=== PATIENT | female | born 1995 | race Caucasian/White ===

== ENCOUNTER 2022-07-29 16:48 | Emergency (ER) | payer OTHER, SELFPAY ==
--- NOTE | ~2022-07-29 | CT_ITS ---
EXAMINATION: CT abdomen pelvis w con DATE: 07/29/2022 18:39 INDICATION: Epigastric and right upper quadrant abdominal pain. Nausea and vomiting. Elevated lipase. TECHNIQUE: Computed tomography (CT) of the abdomen and pelvis was performed with 100 mL Omnipaque 350 intravenous contrast. Automated exposure control and iterative reconstruction technique were employe d. The dose-length product was 678.95 mGy-cm. COMPARISON: None. FINDINGS: The visualized portions of the lung bases demonstrate minimal atelectasis. No pleural effus ion. The heart size is normal. No pericardial effusion. The liver is normal. The gallbladder is pb l in size. The spleen, pancreas, and adrenal glands are normal. There are cysts in the kidneys measur ing up to 6 mm on the left. There is an intrauterine device in expected position. There are changes o f gastric sleeve procedure. There are no dilated loops of bowel. The appendix is normal. There are no pathologically enlarged lymph nodes. There is no free intraperitoneal fluid. There is a 2.9 cm domin ant follicle in left ovary. There is mild thoracic spondylosis. IMPRESSION: 1. Normal pancreas. Reviewed, dictated and finalized at location A. IMPRESSION: 1. Normal pancreas.
[2022-07-29 17:06] VITALS: BP 108/67; PULSE 84; RESP 18; TEMP 37.1; O2SAT 100
[2022-07-29 17:22] LABS: Basophils Percent Auto 0.4 % (0.2-1.2); Eosinophils Absolute Auto 0.1 K/mm3 (0-0.3); Eosinophils Percent Auto 1.5 % (0-4.4); Hematocrit 38.4 % (37.0-47.0); Hemoglobin 12.2 g/dL (12.0-15.0); Immature Granulocyte Absolute 0.02 K/mm3 (0.00-0.031); Immature Granulocyte Percent A 0.3 % (0-0.5); Lymphocytes Absolute Auto 1.89 K/mm3 (0.9-3.2); Lymphocytes Percent Auto 25.2 % (18.3-44.2); Mean Corpuscular HGB Conc 31.8 g/dl (32-36); Mean Corpuscular Hemoglobin 27.9 pg (26-34); Mean Corpuscular Volume 87.7 fl (80-100); Mean Platelet Volume 10.2 fl (7.4-10.4); Monocytes Absolute Auto 0.5 K/mm3 (0.1-0.6); Monocytes Percent Auto 7.1 % (2.6-8.5); Neutrophils Absolute Auto 4.9 K/mm3 (1.3-6.7); Neutrophils Percent Auto 65.5 % (45.5-73.1); Platelet Count Result 312 k/mm3 (150-375); Red Blood Count 4.38 M/mm3 (4.2-5.4); Red Cell Distribution Width 14.3 % (11.5-14.5); White Blood Count 7.5 K/mm3 (4.5-10.0)
[2022-07-29 17:37] LABS: Alanine Aminotransferase 44 U/L (6-35); Albumin Level 4.3 g/dL (3.5-5.1); Alkaline Phosphatase 69 U/L (38-126); Anion Gap 9 mmol/L (8-16); Aspartate Amino Transferase 67 U/L (14-36); Bilirubin,Total 0.5 mg/dL (0.2-1.3); Blood Urea Nitrogen 9 mg/dL (7-17); Calcium 8.8 mg/dL (8.4-10.2); Carbon Dioxide 24 mmol/L (22-30); Chloride 106 mmol/L (98-107); Estimated CRCL calculation 125 ml/min; Estimated Glomerular Filt Rate > 60; Glucose 111 mg/dL (65-110); Lipase 1342 U/L (23-300); Potassium 3.5 mmol/L (3.4-5.0); Sodium 139 mmol/L (137-145)
[2022-07-29] MEDS: ONDANSETRON HCL ODT 4 MG TABLET PO (17:59)
[2022-07-29] MEDS: SODIUM CHLORIDE 0.9% IV 1,000 ML 999 ML IV CONT ×2 (17:59→19:40)
[2022-07-29] MEDS: PANTOPRAZOLE SODIUM IV 40 MG VIAL IV PUSH (17:59)
[2022-07-29] MEDS: MORPHINE SULFATE (*CRX) 4 MG/ML INJ IV PUSH (17:59)
--- NOTE | 2022-07-29 18:02 | ED.ABDPAIN ---
HPI - Abdominal Pain General Chief Complaint: Abdominal Pain Stated Complaint: abdominal pain Time Seen by Provider: 07/29/22 17:11 Source: patient Mode of arrival: ambulatory Limitations: no limitations History of Present Illness HPI narrative: Patient is a 27-year-old female who presents ED with report of epigastric abdominal pain. 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 She thought it may be related to acid reflux. She notes a history of gastric sleeve surgery and has frequent issues with acid reflux. Surgery was performed last October [address] Ferrer with [facility]. She tried taking and omeprazole and Tums, but denied relief. Pain began to radiate across into her right upper quadrant as well. She also reported having nausea and vomiting, unable to keep down any food or drink, which prompted her presentation. She reports pain did improve slightly after vomiting. She did not take anything else for pain. Denies any recent fevers, diarrhea, constipation, rectal bleeding, melena, urinary symptoms. Patient has a history of gallstones, diagnosed last January. Related Data Allergies Allergy/AdvReac Type Severity Reaction Status Date / Time No Known Allergies Allergy Verified 07/29/22 17:12 Review of Systems Review of Systems: CONSTITUTIONAL: Denies fever, chills, or sweats. CARDIOVASCULAR: Denies chest pain. RESPIRATORY: Denies dyspnea. GASTROINTESTINAL: See HPI. GENITOURINARY: Denies dysuria or hematuria. All systems reviewed & are unremarkable except as noted in HPI and below PMFSH Past Medical History Medical History Gallstones GERD (gastroesophageal reflux disease) Surgical History Surgical History (Updated 07/29/22 @ 19:07 by Ita Wynn PA-C) History of gastric surgery Social History Social History (Updated 07/29/22 @ 19:07 by Ita Wynn PA-C) Smoking status: Never smoker Exam Narrative: GENERAL: Well appearing, well-nourished, non-toxic, in no acute distress. HEAD: Normocephalic, atraumatic. NECK: Supple. No adenopathy, no masses. RESPIRATORY: Airway patent, respirations nonlabored. Clear to auscultation bilaterally, no rales, rhonchi, wheezing. CARDIOVASCULAR: Regular rate and rhythm without murmurs, rubs, or gallops. Radial pulses 2+ and equal bilaterally. ABDOMINAL: Soft, moderate tenderness in epigastric and right upper quadrant, nondistended, no hepatosplenomegaly. Normoactive BS. MUSCULOSKELETAL: Moves all extremities. Strength/ROM intact without gross deformities. SKIN: Warm, dry, normal color. No rashes. NEURO: A&O X3. Speech clear. Cranial nerves II-XII grossly intact. Steady gait. No ataxic movements. PSYCHIATRIC: Appropriate mood and affect. Normal interaction. Course Vital Signs Vital signs: Vital Signs Temperature 98.8 F 07/29/22 17:06 Pulse Rate 84 07/29/22 17:06 Respiratory Rate 18 07/29/22 17:06 Blood Pressure 108/67 07/29/22 17:06 Pulse Oximetry 100 07/29/22 17:06 Oxygen Delivery Room Air 07/29/22 17:06 Temperature 98.8 F 07/29/22 17:06 Pulse Rate 77 07/29/22 22:03 Respiratory Rate 15 07/29/22 22:03 Blood Pressure 126/90 07/29/22 22:03 Pulse Oximetry 100 07/29/22 22:03 Oxygen Delivery Room Air 07/29/22 17:06 MDM - Abdominal Pain MDM Narrative Medical decision making narrative: Patient presented to ED with epigastric and right upper quadrant pain that began just prior to arrival after eating Ijim-cy-rrm-Box. Vitals stable upon arrival. Afebrile. Patient with moderate epigastric tenderness on exam. CBC without leukocytosis or anemia. CMP showing mild transaminitis, no records to compare to. Lipase elevated at ~1300. Urine with trace ketones, trace leuk esterase, no other signs of infection. CT abdomen pelvis performed and essentially unremarkable, no
[2022-07-29 18:14] LABS: Appearance Urine Cloudy (Clear); Bacteria Urine None Seen /hpf; Bilirubin Urine 1+ (Negative); Blood Urine Trace (Negative); Color Urine Dark Yellow (Yellow); Glucose Urine UA Negative (Negative); Ketones Urine Trace mg/dL (Negative); Leukocyte Esterase Ur Trace LEU/UL (Negative); Nitrate Urine Negative (Negative); Non Pathogenic Casts 0-2; Protein Urine Negative (Negative); RBC Urine 0-2 /hpf (0-2); Specific Grav Ur 1.023 (1.001-1.035); Squamous Epithelial Cell Urine Occasional /hpf (Few); WBC Urine 0-5 /hpf; pH Urine 5.5 (5.0-9.0)
[2022-07-29 18:16] LABS: Add Urine Microscopic? YES
[2022-07-29 19:24] VITALS: BP 124/79; PULSE 87; RESP 16; O2SAT 100
[2022-07-29 21:04] VITALS: BP 111/71; PULSE 83; RESP 16; O2SAT 99
--- NOTE | 2022-07-29 21:30 | PC.NURSE ---
Pt provided with water and apple juice for oral tolerance test. Pt tolerated both well and has no c/o of nausea or pain.
[2022-07-29 22:03] VITALS: BP 126/90; PULSE 77; RESP 15; O2SAT 100
== END 2022-07-29 22:10 | disposition home or self-care (01) ==
PROVIDERS: Emergency Provider Physician Assistant
DX: K85.90 Acute pancreatitis without necrosis or infection, unspecified (principal); R74.01 Elevation of levels of liver transaminase levels; K21.9 Gastro-esophageal reflux disease without esophagitis; Z98.84 Bariatric surgery status
CPT/HCPCS: 36415; 74177; 80053; 81001; 81025; 83690; 85025; 96361; 96374; 96375; 99284; A9270; C9113; J2270; J7030; Q9967

== ENCOUNTER 2024-07-05 07:58 | Emergency (ER) | payer OTHER, SELFPAY ==
--- NOTE | ~2024-07-05 | XR_ITS ---
XR chest 1V portable Ordering provider: Fausto Lopez MD History: 29 years Female with . R pleuritic pain . Comparison: None. FINDINGS: MEDIASTINUM: The cardiac silhouette is not enlarged. LUNGS: No infiltrates, effusions or pneumothorax. OTHER: No free air under the diaphragm. IMPRESSION: No acute cardiopulmonary pathology. Reviewed, dictated and finalized at location A.
--- OUTSIDE RECORDS SUMMARY | 2024-07-05 08:00 | XMS_ITS | Encounter Summary ---
Author Organization [facility] Address [address] [place] [address] Care Team Providers Care Biofuels Engineering Manager Name Role Phone Unavailable Primary Care Provider Unavailabl e Reason for Visit * Reason Onset Date Comments Other 11/25/2015 Encounter Details Date Type Department Care Team (Late st Contact Info) Description 11/25/2015 Telephone [facility] Program [address] [facility] [place] [address] Frida Santiago MD [address] [facility]. [facility] [address] [place] [address] Other Social History Tobacco Use Types Packs/Day Years Used Date Smoking Tobacco: Every Day Cigarettes Smokeless Tobacco: Never Alcohol Use Standard Drinks/Week Comments Yes 0 (1 standard drink = 0.6 oz pure alcohol) infrequent not when I'm depressed; las t was w/e of 10/14 Comments Unknown Sex and Gender Information Value Date Recorded Sex Assigned at Not on file Legal Sex Female 4:01 PM CDT Gender Identity Not on file Sexual Orientation Not on file documented as of this encounter Plan of Treatment Not on file documented as of this encounter Visit Diagnoses Not on filedocumented in this encounter
--- OUTSIDE RECORDS SUMMARY | 2024-07-05 08:00 | XMS_ITS | Encounter Summary ---
Author Organization [facility] Address [address] [place] [address] Phone Care Team Providers Care Metal Cut Off Saw Tender Name Role Phone Jade Fair NP Primary Care Provider + Evelina Kim Unavailable [phone] Encounter Details Date Type Department Care Team (Late st Contact Info) Description 09/24/2023 E-Visit [facility] Dermatology [address] [facility] [address] [place] [address] Elizabeth Gottlieb MD PhD [address] [facility] [address] [place], [place] [id number] Dry lip patch Social History Tobacco Use Types Packs/Day Years Used Date Smoking Tobacco: Former Cigarettes Q uit: 03/25/2014 Vaping Smokeless Tobacco: Never AUDIT-C Answer Date Recorded Q1: How often do you have a drink containing alc ohol? Monthly or less 06/28/2023 Q2: How many drinks containi ng alcohol do you have on a typical day when you are drinking? 1 or 2 06/28/2023 Q3: How often do you have si x or more drinks on one occasion? 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 Gender Identity Not on file Sexual Orientation Not on file documented as of this encounter Plan of Treatment Not on file documented as of this encounter Visit Diagnoses Not on filedocumented in this encounter Additional Health Concerns Infection Onset Date Last Indicated Resolved Time COVID: Suspected 03/11/2024 03/11/2024 03/11/2024 8:58 AM ASSEMBLY MACHINE OFFBEARER documented as of this encounter Care Teams Metal Cut Off Saw Tender Relationship Specialty Start Date End Date Jade Fair NP [address] [facility] [address] [place] [address] PCP - General Family Medicine 05/01/21 Evelina Kim PA [address] [place] [address] Physician [employer] Medic Neurology 10/16/21 documented as of this encounter
--- OUTSIDE RECORDS SUMMARY | 2024-07-05 08:00 | XMS_ITS | Clinical Summary ---
Author Organization [facility] [employer] Address [address] [place] [address] Care Team Providers Care Rerolling Machine Operator Name Role Phone Jade Fair SLIP BRIDGE OPERATOR-STORY ANALYST Primary Care Provider + Source Comments [facility] [employer],non-owned Affiliates and Associated Physician Practices is amultiple site organization consisting of ambulatory clinics and hospital sitesin [place], [place], [place] and [place]. This disclosure is being madepursuant to the Care Everywhere program and may not contain all information available regarding this patient. Last updated 17.[facility] [employer] Allergies No known active allergies Medications * This document contains information received from the source organization and may not represent a complete record from that organization. * Be aware that medications may not be up to date on this document. Alwaysverify current medications with the patient. levonorgestrel (MIRENA) 20 MCG/24HR IUD 1 Device by Intrauterine route as directed. Active sertraline (ZOLOFT) 50 MG tablet Take 50 mg by mouth once daily Active lamoTRIgine (LAMICTAL) 100 MG tablet Take 50 mg by mouth once daily Active ALPRAZolam (XANAX) 0.5 MG tablet Take 0.5 mg by mouth 2 times daily Active traZODone (DESYREL) 50 MG tablet Take 50 mg by mouth at bedtime Active naproxen (NAPROSYN) 500 MG tablet Take 1 Tab by mouth 2 times daily as needed for Pain 20 Tab 6 Active fluticasone furoate (FLONASE SENSIMIST/VERAMY ST) 27.5 MCG/SPRAY nasal spray Leonard 1 Inhaler into each nostril 2 times daily 9.1 mL 1 Active acetaminophen (TYLENOL) 500 MG capsule Take 1 (one) capsule by mouth every 4 hours as needed for Fever or Pain 30 capsule 2 Active ibuprofen (MOTRIN) 600 MG tablet Take 1 (one) tablet by mouth every 6 hours as needed for Pain 30 tablet 2 Active Additional Information Patient not taking.Reported on 05/24/2021 cyclobenzaprine (FLEXERIL) 10 MG tablet Take 1 (one) tablet by mouth 3 times daily as needed for Muscle Spasms 15 tablet 2 Active Additional Information Patient not taking.Reported on 05/24/2021 lidocaine (LIDODERM) 5 % patch Apply 1 (one) patch to skin once daily 6 patch 2 Active Additional Information Patient not taking.Reported on 05/24/2021 Paragard Intrauterine Copper IUD 1 Each by Intrauterine route as directed Active acetaZOLAMIDE (DIAMOX SEQUELS PO) Active Active Problems Problem Noted Date Diagnosed Date Routine general medical exam ination at a health care facility 11/06/2013 Insomnia 11/06/2013 Anxiety 11/06/2013 Upper back pain on right side 11/06/2013 Overview (11/06/2013): Started when she had epidural end of 2012 Migraines 11/06/2013 Fatigue 11/06/2013 Dysmenorrhea 08/31/2010 Overview (08/31/2010): Patient with headaches, cramping and nausea a couple of days prior to and throughout menses. Currently improves with excedrin menstrual relief. Patient does not want further intervention at this time. Plan: - Recommended trial of ibuprofen a couple of days prior to start of menses if patient desires Well adolescent visit 10/10/2009 Overview (08/31/2010): Assessment: 15 yo healthy adolescent. Here for physical/vaccinations so that she may start EMT program. Anticipatory guidance provided. Plan: - Vaccinations up to date except for menactra booster -- given today - Patient defers HPV vaccination today - Urine LCR, HIV (consent obtained), RPR -- patient to return to have these drawn next week - Fasting glucose, hgbA1c, lipids and cholesterol -- will return next week when faxing - Patient to return Saturday for nurse only visit for PPD placement (can't place today as can't be read over weekend) - CALL PATIENT DIRECTLY AT [phone] IF CALLING WITH RESULTS. Contraceptive management 10/10/2009 Overview (08/31/2010): Assessment: 15 y/o female with past use of orthocept. Discontinued after patient experienced nausea, leg pain and hair loss which she attributed to the pills. Sxs resolved after stopping pills. Patient defers control at this time. Wants to continue to use barrier protection. Immunizations Immunization Administration Dates Next Due DPT 05/30/1998, 7,01/25/1994, 4,1993 HEP A PEDS 2 DOSE 04/11/2007,09/18/1999 HEP B VACCINE, PED/ADOL 05/30/1998,12/27/1997, HIB BOOSTER 12/14/1996, 4,1993, 4 INFLUENZA VACCINE 04/11/2007 MENINGOCOCAL MENINGITIS 04/11/2007 MENINGOCOCCAL ACWY (MCV4P) VAC IM 08/31/2010 MMR 05/30/1998,12/14/1996 POLIO OPV 05/30/1998, 7,01/25/1994, 4,1993 TDAP (7yrs+) 07/29/2008 Family History Medical History Relation Name Comments Heart Failure Father Diabetes Maternal Grandfather Heart Failure Maternal Grandfather Hypertension Maternal Grandfather Cancer - Breast Neg Hx Cancer - Colon Neg Hx Relation Name Status Comments Father Maternal Grandfather Social History Tobacco Use Types Packs/Day Years Used Date Smoking Tobacco: Former Cigarettes 0.5 5 0 05/31/2015 - 05/30/2020 Smokeless Tobacco: Never Tobacco Cessation:Ready to Q uit: No; Counseling Given: Yes Alcohol Use Standard Drinks/Week Comments Not Currently 0 (1 standard drink = 0.6 oz pur e alcohol) AUDIT-C Answer Date Recorded Q1: How often do you have a drink containing alc ohol? Never 05/24/2021 Average Number of Drinks Not on file 022 Q3: How often do you have si x or more drinks on one occasion? 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 Gender Identity Not on file Sexual Orientation Not on file Last Filed Vital Signs Vital Sign Reading Time Taken Comments Blood Pressure 138/97 07/24/2023 11:00 AM CDT Pulse 86 07/24/2023 11:00 AM CDT Temperature 36.8 C (98.3 F) 07/24/2023 11:00 AM CDT Respiratory Rate 20 07/24/2023 11:00 AM CDT Oxygen Saturation 100% 07/24/2023 11:00 AM CDT Inhaled Oxygen Concentration - - Weight 73.5 kg (162 lb) 07/24/2023 11:00 AM CDT Height 167.6 cm (5' 6 ) 07/24/2023 11:00 AM CDT Body Mass Index 26.15 07/24/2023 11:00 AM CDT Plan of Treatment Health Maintenance Due Date Last Done Comments HEPATITIS C SCREENING 06/22/2011 DTAP/TDAP/TD VACCINES (7 - Td or Tdap) 07/29/2018 07/29/2008, 05/30/1998, 12/14/1996, Additional history exists COVID-19 VACCINE ( season) 2023 11/04/2020, 10/07/2020 DEPRESSION SCREENING 03/25/2024 PAP SMEAR 08/09/2024 08/09/2021 INFLUENZA VACCINE (Season Ended) 2024 04/11/2007 ZOSTER VACCINE (1 of 2) 06/27/2043 HIB VACCINE Completed 12/14/1996, 05/1993, 1993, Additional history exists HEPATITIS B VACCINE Completed 05/30/1998, 12/27/1997, 11/26/1997 MENINGOCOCCAL GROUPS A/C/Y/W VACCINE Completed 08/31/2010, 04/11/2007 HIV SCREENING Completed 08/09/2021, 08/23, 10/10/2009 HPV VACCINE Aged Out No longer eligi ble based on patient's age to complete this topic MENINGOCOCCAL (Group B) VACCINE SHARED DECISION-MAKING Aged Out No longer eligible based on patient's age to complete this topic PNEUMOCOCCAL VACCINE Aged Out No long er eligible based on patient's age to complete this topic Goals Goal Patient Goal Type Associated Problems Recent Progress Patient-Stated? Author Quit smoking / using tobacco Lifestyle Alona Lomeli Procedures Procedure Name Priority Date/Time Associated Diagnosis Comments PAP IMAGE-GUIDED RFLX HPV+CT/NG Routine 08/09/2021 3:15 PM CDT Well woman exam with routine gynecological exam Screen for STD (sexually transmitted disease) HIV-1 HIV-2 ANTIBODY + HIV P24 AG PANEL Routine 08/09/2021 Screen for STD (sexually transmitted disease) from Last 3 Months or Most Recently Relevant to Health Maintenance Results * PAP IMAGE-GUIDED RFLX HPV+CT/NG (08/09/2021 3:15 PM CDT) Case Report Gynecologic Cytology Report Case: [id number] Authorizing Provider: Tristen Loza MD Collected: 08/09/2021 03:15 PM Ordering Location: [facility] Obstetrics Received: 08/10/2021 12:29 PM [facility] Screen: Kelvin Manjarrez Pathologist: Kylah Kim MD Specimen: THINPREP - IMAGE GUIDED, Cervix/Endocervix 08/15/2021 3:15 PM CDT [facility] LMP 08/1308/15/2021 3:15 PM CDT [facility] Menstrual Status IUD 08/16/19 3:15 PM CDT [facility] Specimen Adequacy Satisfactory for evaluation, endocervical/trans formation zone component present. 08/15/2021 3:15 PM CDT [facility] Categorization Negative for intraepithelial lesion or malignancy. 08/15/2021 3:15 PM CDT [facility] Interpretation DIRECTOR HARDWARE Negative for Intraepithelial lesion or malignancy. Reactive cellular changes present. 08/15/2021 3:15 PM CDT [facility] Other Inflammation present. 08/15/2021 3:15 PM CDT [facility] Pap Footnote The Pap Smear is a screening test. False positive and false negative results occur. Negative results do not preclude abnormalities, thus clinical correlation is required. This specimen was evaluated by the [employer] Imaging System along with an additional manual rescreening by a shore hand dredge or barge and/or pathologist. 08/15/2021 3:15 PM CDT [facility] Embedded Images 3:15 PM CDT [facility] Pathology/Cytolo gy MISCELLANEOUS SAMPLES / Unknown 08/09/2021 3:15 PM CDT 08/10/2021 12:29 PM CDT Tristen Loza MD LAB - PATHOLOGY/CYTOLOGY ORDER TRA Final Result [facility] [address] [place] [address], [facility] [phone] * HIV-1 HIV-2 ANTIBODY + HIV P24 AG PANEL (08/09/2021) HIV Screen 4th Generation w Reflex NON-REACT KEYANA NON-REACT KEYANA [facility] Comment: HIV-1 antigen and HIV-1/HIV-2 antibodies were not detected. There is no laboratory evidence of HIV infection. PLEASE NOTE: This information has been disclosed to you from records whose confidentiality may be protected by state law. If your state requires such protection, then the state law prohibits you from making any further disclosure of the information without the specific written consent of the person to whom it pertains, or as otherwise permitted by law. A general authorization for the release of medical or other information is NOT sufficient for this purpose. For additional information please refer to http://education.Mamba.Ecolibrium/faq/DNT975 (This link is being provided for informational/ educational purposes only.) The performance of this assay has not been clinically validated in patients less than 2 years old. Test Performed at: [facility] [address] [place] [address] TWYLA FAIR DO,MPH Blood BLOOD SPECIMEN / Unknown 08/09/2021 08/09/2021 2:58 PM CDT Tristen Loza MD LAB - CHEMISTRY ORDERABLES Fin al Result Performing Organization Address City/State/[facility] Co de Phone Number [facility] [phone] [place] [address] from Last 3 Months or Most Recently Relevant to Health Maintenance Insurance [facility] MEDICAID - [place] [facility] AETNA Care Teams Rerolling Machine Operator Relationship Specialty Start Date End Date Jade Fair, SLIP BRIDGE OPERATOR-STORY ANALYST [address] [place] [address] PCP - General Nurse Practitioner Family 11/27/21
--- OUTSIDE RECORDS SUMMARY | 2024-07-05 08:00 | XMS_ITS | Encounter Summary ---
Author Organization [facility] Address [address] [place] [address] Care Team Providers Care Design Technology Professor Name Role Phone Unavailable Primary Care Provider Unavailabl e Reason for Visit * Reason Onset Date Comments Other 11/09/2015 Encounter Details Date Type Department Care Team (Late st Contact Info) Description 11/09/2015 Telephone [facility] Program [address] [facility] [place] [address] Frida Santiago MD [address] [facility] [address] [place] [address] Other Social History Tobacco Use Types Packs/Day [...]
--- OUTSIDE RECORDS SUMMARY | 2024-07-05 08:00 | XMS_ITS | Clinical Summary ---
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 2 Active HYDROcodone-acet aminophen (HYCET) 7.5-325 mg/15 mL SolutionIndicati ons:Routine general medical examination at a health care facility Take 15 mL by mouth every 6 hours as needed for Pain, Severe. Max Daily Amount: 60 mL 300 mL 11/14/2021 1:26 PM CDT 2 Active loratadine (CLARITIN) 10 mg tablet Take 10 mg by mouth daily. Active acetaminophen (TYLENOL) 500 mg tablet Take 500 mg by mouth every 6 hours as needed. Active ondansetron (ZOFRAN ODT) 4 mg Tablet, Rapid Dissolve Dissolve 1 tablet on top of tongue, then swallow with saliva every 6 hours as needed for Nausea/Vomiti ng. 28 Tablet 11/14/2021 1:26 PM CDT 2 Active Active Problems Problem Noted Date Diagnosed Date Hypokalemia 11/14/2021 Dehydration 11/14/2021 Pseudotumor cerebri 11/13/2021 Class 2 obesity due to exces s calories without serious comorbidity with body mass index (BMI) of 38.0 to 38.9 in adult 11/13/2021 Anxiety and depression 11/13/2021 Postoperative nausea and vomiting 11/13/2021 Postoperative pain 11/13/2021 Severe episode of recurrent major depressive disorder, without psychotic features 09/04/2016 General medical exam 09/04/2016 Tobacco use 10/31/2015 Immunizations Immunization Administration Dates Next Due (ACTHIB/HIBERIX)(2 MOS-5 YRS /6 WKS-4 YRS) HAEMOPHILUS INFLUENZAE TYPE B VACCINE (HIB), PRP-T CONJUGATE, 4 DOSE, 0.5 ML IM 12/14/1996,08/27/1995,01/25/1994,12/15,1993 (ADACEL/BOOSTRIX)(10 YR UP) TDAP VACCINE, 0.5ML, IM 07/29/2008,12/14/1996,01/25/1994,12/15,1993 (GARDASIL)(9-45 YRS) HUMAN PAPILLOMAVIRUS VACCINE, TYPES 6, 11, 16, 18, QUADRIVALENT (4VHPV), 3 DOSE, IM 04/11/2007 (HAVRIX/VAQTA)(12 MO-18 YRS) HEPATITIS A VACCINE 0.5 ML PED/ADOL 2 DOSE, IM 08/03/2010,04/11/2007,09/18/1999 (INFANRIX)(6 WKS-6 YRS) DIPT HERIA, TETANUS TOXOIDS, AND ACCELLULAR PERTUSSIS VACCINE (DTAP), 0.5 ML IM 05/30/1998,12/14/1996,01/25/1994,12/15,1993 (M-M-R II/PRIORIX)(12 MO UP) MEASLES, MUMPS AND RUBELLA VIRUS VACCINE, 0.5 ML IM/SUBCUT 05/30/1998,12/14/1996 (RECOMBIVAX HB/ENGERIX-B)(0- 19 YRS) HEPATITIS B VACCINE 5 MCG/0.5 ML OR 10 MCG/0.5 ML PED OR ADOL 3 DOSE (PF), IM 05/30/1998,12/27/1997,11/26/1997 (SPIKEVAX) (12 YRS UP PRIMAR Y SERIES) COVID-19 VACCINE - MRNA-1273(PF) 100 MCG/0.5 ML IM SUSP 11/04/2020,10/07/2020 Diptheria, Tetanus Toxoids, And Whole Cell Pertussis Vaccine (DTP), for intramuscular use 12/14/1996,08/27/1995,01/25/1994,12/15,1993 Hemophilus influenza b vacci ne (Hib), PRP-D conjugate, for booster use only, intramuscular use 12/14/1996,01/25/1994,1993,09/01 Hepatitis B Vaccine, Unspeci fied Formulation 05/30/1998,12/27/1997,11/26/1997 Influenza Vaccine Nasal 04/11/2007 Influenza, Unspecified Formulation 04/11/2007 Meningococcal Polysaccharide Vaccine SQ 08/31/2010,04/11/2007 Meningococcal Polysaccharide Vaccine, Serogroups A, C, Y, W-135, quadrivalent (Mpsv4) SQ 04/11/2007 Poliovirus Vaccine Live Oral 05/30/1998, 12/14/1996,01/25/1994,12/15,1993 Poliovirus Vaccine, Unspecif ied Formulation 05/30/1998,12/14/1996 Family History Medical History Relation Name Comments Depression Father Heart Disease Father Other Mother Thyroid Disease Mother Relation Name Status Comments Father Mother Alive Social History Tobacco Use Types Packs/Day Years Used Date Smoking Tobacco: Former Cigarettes Smokeless Tobacco: Never Tobacco Cessation:Counseling Given: Not Answered Alcohol Use Standard Drinks/Week Comments Yes 0 (1 standard drink = 0.6 oz pure alcohol) infrequent not when I'm depressed; las t was w/e of 10/14 Comments No Sex and Gender Information Value Date Recorded Sex Assigned at Not on file Legal Sex Female 4:01 PM CDT Gender Identity Not on file Sexual Orientation Not on file Last Filed Vital Signs Vital Sign Reading Time Taken Comments Blood Pressure 130/79 11/15/2021 7:50 AM CDT Pulse 80 11/15/2021 7:50 AM CDT Temperature 37.4 C (99.4 F) 11/15/2021 7:50 AM CDT Respiratory Rate 18 11/15/2021 7:50 AM CDT Oxygen Saturation 100% 11/15/2021 7:50 AM CDT Inhaled Oxygen Concentration - - Weight 108.7 kg (239 lb 9.6 oz) 11/15/2021 5:03 AM CDT Height 165.1 cm (5' 5 ) 11/13/2021 4:47 PM CDT Body Mass Index 39.87 11/13/2021 4:47 PM CDT Plan of Treatment Health Maintenance Due Date Last Done Comments HPV VACCINES (2 - 2-dose series) 10/10/2007 04/11/19 08 HPV/Cotest (21-29) 2014 DTAP/TDAP/TD VACCINES (7 - T d or Tdap) 07/29/2018 07/29/2008, 05/30/1998, 12/14/1996, Additional history exists HPV/Cotest (30-65) 06/27/2023 INFLUENZA VACCINE (#1) 2023 04/11/2007 COVID-19 Vaccine (2023-2 5 season) 2023 11/04/2020, 10/07/2020 CERVICAL CANCER SCREENING 08/09/2024 PAP SMEAR 08/09/2024 08/09/2021 HEPATITIS B VACCINES Completed 05/30/1998, 05/30/1998, 12/27/1997, Additional history exists Medical Devices Implanted Type Area Cutter Finisher Device Identifier Shelf Expiration Date Model / Serial / Lot Seamguard Endogia 60 Blk [id number] - [id number] Implanted:Qt y: 1 on 11/13/2021 by Pietro Ferrer MD at [facility] Biological N/A: [employer] [id number] 06/19/2024 12BSGTRI 60B / / [id number] Seamguard Endogia 60 Blk [id number] - [id number] Implanted:Qt y: 1 on 11/13/2021 by Pietro Ferrer MD at [facility] Biological N/A: [employer] [id number] 06/19/2024 12BSGTRI 60B / / [id number] Seamguard Endogia 60 Prpl [id number] - [id number] Implanted:Qt y: 1 on 11/13/2021 by Pietro Ferrer MD at [facility] Biological N/A: [employer] [id number] 06/19/2024 12BSGTRI 60P / / [id number] Seamguard Endogia 60 Prpl [id number] - [id number] Implanted:Qt y: 1 on 11/13/2021 by Pietro Ferrer MD at [facility] Biological N/A: [employer] [id number] 06/19/2024 12BSGTRI 60P / / [id number] Seamguard Endogia 60 Prpl [id number] - [id number] Implanted:Qt y: 1 on 11/13/2021 by Pietro Ferrer MD at [facility] Biological N/A: [employer] [id number] 2024 12BSGTRI 60P / / [id number] Iud Insurance [employer] OPEN CHOICE PPO [facility] [id number] RX [employer] (INTERNAL) [facility] [employer] Advance Directives For more information, please contact: [phone] * Full Code (Latest Code Status on File) Date Activated Date Inactivated Comments 11/13/2021 12:49 PM 11/15/2021 12:52 PM * Full Code Date Activated Date Inactivated Comments 11/13/2021 11:07 AM 11/13/2021 12:49 PM * Full Code Date Activated Date Inactivated Comments 09/03/2016 6:44 PM 09/06/2016 12:50 PM
--- OUTSIDE RECORDS SUMMARY | 2024-07-05 08:00 | XMS_ITS | Clinical Summary ---
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 PM CDT 12/13/2023 6:19 PM CDT Paula Wilson [facility] LAB MICROBIOLOGY - GENERA L ORDERABLES Final Result [address] [address] [facility] [place] [address] * Pap with reflex to High Risk HPV and Genotyping (Cytology Component) (12/07/2022 3:23 PM CDT) Thin prep (Pap test) 12/07/2022 3:23 PM CDT 12/11/2022 11:07 AM CDT Narrative PATHOLOGY [facility] - 12/17/2022 1:00 PM CDT EPIC results best viewed via link to PDF [place] [id number] [place], [place] [address] Tele: Vijaya Lopez MD - Waffle Machine Operator CYTOLOGY REPORT Note to Patients: This report may contain a detailed description of human tissue sent by a health care provider to the laboratory for pathologic evaluation. The content of this report is essential for diagnosis and may provide important critical findings. This information may be unfamiliar to patients to review without a medical professional present. It is advised that the patient review this report in the presence of a health care provider who can answer questions and explain the details. Patient Name: RUTH PANDA Address: [address] [place] [id number] Gender: F : 1995 (Age: 27) Service: Location: [facility] : [id number] [facility] #: [id number] [place] [facility] [place] Taken: 12/07/2022 Reported: 12/17/2022 Physician(s): Paula Wilson CNM FINAL DIAGNOSIS: SOURCE OF SPECIMEN - ThinPrep Pap w/ reflex HPV: STATEMENT OF ADEQUACY Source: Cervical/Endocervical - Satisfactory for interpretation - Endocervical /Transformation Zone component present - Case screened using computer assisted imaging technology and manually re- screened by a surgery tech. GENERAL CATEGORIZATION: - Negative for intraepithelial lesion or malignancy INTERPRETATION: Due to scant cellularity, the specimen was reprocessed and a second slide was made for evaluation. /12/17/2022 13:00Hue Hernandez M.S., ERIC (ASCP) Report Reviewed and Electronically Signed By Hue Hernandez M.S., ERIC (ASCP)Clerical Data Follow A; G0145 CLINICAL DIAGNOSIS AND HISTORY Last Menstrual Period: 11/23/22 Menstrual History: Irregular Cycles REPORT IMAGES AND/OR SCANNED DOCUMENTS ONLY VIEWABLE IN PDF FORMAT The Pap test is a screening test used to aid in the detection of cervical cancer and its precursors. It should not be the sole means by which malignant and premalignant lesions are diagnosed. Both false negative and false positive results may occur. It also has poor sensitivity for the detection of endometrial lesions and should not be used to evaluate suspected endometrial abnormalities. For these reasons it is most important to obtain Pap tests at regular intervals, as recommended by your physician or nurse practitioner. us Paula Wilson CNM LAB CYTOLOGY ORDERABLES F inal Result PATHOLOGY [facility] Laboratory Receiving [address] [place] [address] from Last 3 Months or Most Recently Relevant to Health Maintenance Insurance [facility] PL[facility]PP[facility] Address: [place] [address] [facility] Address: [place] [address] [facility] CHOICE PLUS [facility] H[facility]/PPO Address: [facility] [id number] [place] [address] Advance Directives For more information, please contact: [phone] Documents on File Type Date Recorded 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
--- OUTSIDE RECORDS SUMMARY | 2024-07-05 08:00 | XMS_ITS | Continuity of Care Document ---
Author Organization [facility] Address [address] [place] [address] [address] [place] [address] Phone Care Team Providers Care Tile Mechanic Helper Name Role Phone Virgilio FRANKEL MD, Marline Unavailable Unavailable Procedures Procedure Date GDX Optic Nerve GDX Optic Nerve Results Test Name Date and Time Measure Units Reference Range Abnormal Flag Status Commen ts Panel Description: [id number] Final Image Zeiss Result 1 Advance Directives Directive Yes / No Effective Date File Name No Information Encounters Encounter Description Practice Location Reason(s) For Visit Diagnoses Date Provider Providers Copied on Encounter [facility], [address] [place] [address], [id number], tel:[phone] OPH CONSULT FABRIZIO H[place]GES No Information [address]. [address] [place] [address] [address], [place], [address], [place]. tel:[phone] Referring Provider: Sabra Smith MD, [address] [place] [address], [place], [address]. tel:[phone] [facility], [address] [place] [address] [address], [id number], [place] tel:[phone] OPH [facility]SULT FABRIZIO HODGES No Information 2 Virgilio Horan. [address] [place] [address] [address], [address], [place]. tel:[phone] Referring Provider: Sabra Smith MD, [address] [place] [address], [place], [address]. tel:[phone] Family History Family Member Type Diagnosis Age At Onset No Information Payers Payer name Insurance type Covered constitution party ID Lalit mcqueen(s) Claudy [id number] Social History Type Description Quantity Date Captured Comments Sex Female Smoking Status No Information Chief Complaint And Reason For Visit No Information Reason For Referral Reason For Referral No Information History Of Present Illness Encounter Date Complaint History Of Prese nt Illness No Information Functional Status Date Functional Assessmen t No Information Instructions Date Instruction Additional Infor mation No Information Assessments Type Assessment Date No Information Patient Care Teams Name Effective Dates (start - stop) Status Members No Information
--- OUTSIDE RECORDS SUMMARY | 2024-07-05 08:00 | XMS_ITS | Referral Summary ---
Author Organization [facility] Address [address] [facility] [address] [place] [address] Phone Care Team Providers Care Chief Program Officer Name Role Phone Jade Fair NP Primary Care Provider + Evelina Kim Unavailable [phone] Encounters Date Type Department Care Team Description 04/27/2024 Orders Only [facility] Primary Care at [address] [address] Jade Fair NP Iron deficiency anemia, unspecified iron deficiency anemia type (Primary Dx) from Last 3 Months Allergies No known active allergies Medications copper [...] 04/01/2024 Assessment & Plan (04/01/2024 1:28 PM FEATURES REPORTER): Dizziness more likely the result of hypotension [...] 03/05/2023 Assessment & Plan (03/05/2023 9:25 AM FEATURES REPORTER): Continue with prilosec for acid reflux. todays [...] ordered Assessment & Plan (03/01/2022 1:56 PM FEATURES REPORTER): Bariatric labs ordered Iron deficiency anemia 11/22/2021 Assessment & Plan (04/01/2024 1:27 PM FEATURES REPORTER): Repeat anemia panel Mild dizziness noted; more likely related to drop in BP as opposed to decreased hemoglobin Assessment & Plan (11/22/2021 10:45 AM CDT): Repeat cbc Hypertriglyceridemia 10/02/2021 Assessment & Plan (07/09/2023 3:20 PM CDT): Lipid panel ordered Assessment & Plan (03/05/2023 9:25 AM FEATURES REPORTER): Repeat labs next visit Assessment & Plan (10/02/2021 2:33 PM CDT): Repeat labs 6 months Idiopathic intracranial hypertension 06/30/2021 Overview (10/16/2021): - 04/2021 seen by forklift technician at [facility], noted to have disc edema OD iso [...] Plan (11/01/2023 9:25 AM CDT): =seen by forklift technician at [facility], noted to have disc edema OD iso [...] time Assessment & Plan (04/02/2022 1:53 PM FEATURES REPORTER): sLIGHT WORSENING OF ANXIETY AND DEPRESSION NOTED. [...] INHIBITOR. Assessment & Plan (02/19/2022 3:11 PM FEATURES REPORTER): Papilledema resolved today, OCT with normal RNFL and ganglion cell layer (GCL) Overall reassuring and improved exam Provided handout on IIH triggers RTC 3-4 months for repeat exam [...] diamox Assessment & Plan (05/24/2021 3:35 PM FEATURES REPORTER): Follow up with neuro-opthamology Arthritis 05/08/2021 Assessment & Plan (05/08/2021 10:28 AM FEATURES REPORTER): Joint pain that is intermittent, ordered lab work to rule out any kind of autoimmune process. Referral to Neurology. Numbness and tingling in right hand 05/05/2021 Assessment & Plan (05/08/2021 10:28 AM FEATURES REPORTER): Ordered referral to neurology; EMG testing to be performed; lab work as noted Tinnitus, right ear 04/26/2021 Assessment & Plan (05/08/2021 10:27 AM FEATURES REPORTER): I do want her to continue with MRI scan of the brain to rule out any kind of tumor in the ear canal or other forms of tumors in the brain Assessment & Plan (05/01/2021 1:38 PM FEATURES REPORTER): Due to new tinnitus of the right eat along with headache I recommend MRI of the brain to rule out tumors Anxiety 04/04/2021 Assessment & Plan (04/01/2024 1:27 PM FEATURES REPORTER): Stable on current dose of benzo; instructed [...] properties. Assessment & Plan (03/05/2023 9:24 AM FEATURES REPORTER): Stable on current dose of benzo; instructed [...] understanding. Assessment & Plan (04/04/2021 10:57 AM FEATURES REPORTER): Started on xanax short term; up to 3 months for anxiety and depression; instructed on benzo use; SIDE EFFECT of benzos, potential for addiction Major depressive disorder, recurrent, moderate 0 04/03/2021 Assessment & Plan (04/02/2022 1:53 PM FEATURES REPORTER): sLIGHT WORSENING OF ANXIETY AND DEPRESSION NOTED. [...] 11/06/2013 Assessment & Plan (04/01/2024 1:17 PM FEATURES REPORTER): Given samples of [facility] ODT Assessment & Plan (11/01/2023 9:25 AM CDT): Improvement in migraines with weight loss noted. Assessment & Plan (05/08/2021 10:27 AM FEATURES REPORTER): Considered migraines causing issues however patient does [...] 04/01/2024 Assessment & Plan (03/11/2024 9:31 AM FEATURES REPORTER): Patient was given antibiotics instructed to call [...] (04/06/2022): Added automatically from request for surgery [id number] Jaundice 03/01/2022 03/04/2023 Assessment & Plan (03/01/2022 1:56 PM FEATURES REPORTER): CMP ordered to evaluate for bilirubin and liver enzymes Acute non-recurrent frontal sinusitis 01/29/2022 03/04/2023 Assessment & Plan (01/29/2022 1:59 PM FEATURES REPORTER): Presents with acute sinusitis, instructed patient on [...] 11/13/202107/04 Assessment & Plan (04/02/2022 1:52 PM FEATURES REPORTER): SLIGHT WORSENING OF ANXIETY AND DEPRESSION NOTED. [...] 10/02/202102/2023 Assessment & Plan (04/02/2022 1:52 PM FEATURES REPORTER): BMI Follow-up includes: nutrition counseling. Assessment & Plan (03/01/2022 1:56 PM FEATURES REPORTER): BMI Follow-up includes: nutrition counseling. b Assessment [...] rate. Assessment & Plan (05/31/2021 1:05 PM FEATURES REPORTER): Patient presents for weight loss education. Today we discussed getting even more active. We discussed how to optimize health through exercise. adipex ordered; follow up in 1 month Sensory disorder of smell 05/05/2021 Assessment & Plan (05/08/2021 10:27 AM FEATURES REPORTER): Continue with MRI of the brain; referral to neurology New daily persistent headache 04/26/2021 05/05/2021 Assessment & Plan (05/01/2021 1:38 PM FEATURES REPORTER): MRI of the brain ordered; ordered reglan and toradol for suspect acute migraine Major depressive disorder, recurrent, mild 04/03/2021 04/02/2022 Major depressive disorder, r ecurrent, unspecified 04/03/2021 04/02/2022 Assessment & Plan (04/04/2021 10:56 AM FEATURES REPORTER): STARTED ON ZOLOFT 25MG Instructed patient on [...] counseling. Assessment & Plan (05/31/2021 1:05 PM FEATURES REPORTER): BMI Follow-up includes: nutrition counseling. Assessment & Plan (05/24/2021 3:35 PM FEATURES REPORTER): BMI Follow-up includes: nutrition counseling and exercise counseling. Assessment & Plan (05/08/2021 10:25 AM FEATURES REPORTER): BMI Follow-up includes: nutrition counseling. Assessment & Plan (03/28/2021 1:23 PM FEATURES REPORTER): BMI Follow-up includes: nutrition counseling. Dizziness 03/27/2021 05/05/2021 Assessment & Plan (05/01/2021 1:38 PM FEATURES REPORTER): MRI of the brain ordered due to headaches and dizziness Assessment & Plan (04/04/2021 10:57 AM FEATURES REPORTER): Improvement noted with meclizine and analia maneuver; call if worsening of dizziness occurs Assessment & Plan (03/28/2021 1:22 PM FEATURES REPORTER): Likely benign positional vertigo, instructed patient on [...] to start of menses if patient desires Immunizations Immunization Administration Dates Next Due DTP [...] 7,01/25/1994,12/15,1993 Polio, Unspecified 05/30/1998,12/14/1996 Tdap 07/29/2008, 7,01/25/1994,12/15,1993 Social History Tobacco Use Types Packs/Day Years [...] on file Legal Sex Female 10:52 AM FEATURES REPORTER Gender Identity Not on file Sexual Orientation Not on file Last Filed Vital Signs Vital Sign Reading Time Taken Comments Blood Pressure 126/80 04/01/2024 12:55 PM FEATURES REPORTER Pulse 85 04/01/2024 12:55 PM FEATURES REPORTER Temperature 37 C (98.6 F) 03/11/2024 8:27 AM FEATURES REPORTER Respiratory Rate 14 08/17/2022 8:10 AM CDT Oxygen Saturation 98% 04/01/2024 12:55 PM FEATURES REPORTER Inhaled Oxygen Concentration - - Weight 79.4 kg (175 lb) 04/01/2024 12:55 PM FEATURES REPORTER Height 165.1 cm (5' 5 ) 04/01/2024 12:55 PM FEATURES REPORTER Body Mass Index 29.12 04/01/2024 12:55 PM FEATURES REPORTER Plan of Treatment Not on file Procedures Procedure Name Priority Date/Time Associated Diagnosis [...] CDT 12/13/2023 6:19 PM CDT Paula Wilson [facility] LAB MICROBIOLOGY - GENERA L ORDERABLES Final Result [facility] [place] [address] Department [place] [address] * Pap with reflex to High Risk HPV and Genotyping (Cytology Component) (12/07/2022 3:23 PM CDT) Thin prep (Pap test) 12/07/2022 3:23 PM CDT 12/11/2022 11:07 AM CDT Narrative PATHOLOGY [facility] - 12/17/2022 1:00 PM CDT EPIC results best viewed via link to PDF [place] [id number] [place], [place] [address] Tele: Vijaya Lopez MD - Disk Recoater CYTOLOGY REPORT Note to Patients: This report [...] the details. Patient Name: RUTH PANDA Address: [address] [place] [address] [place] [address] Gender: F : 1995 (Age: 27) Service: Location: N : [id number] [facility] #: [id number] Patient Type: [facility] SPECIMEN Taken: 12/07/2022 Reported: 12/17/2022 Physician(s): Paula Wilson CNM FINAL DIAGNOSIS: SOURCE OF SPECIMEN - ThinPrep Pap w/ reflex HPV: STATEMENT OF ADEQUACY Source: Cervical/Endocervical - Satisfactory for interpretation - Endocervical /Transformation Zone component present - Case screened using computer assisted imaging technology and manually re- screened by a rn school. GENERAL CATEGORIZATION: - Negative for intraepithelial lesion [...] LAB CYTOLOGY ORDERABLES F inal Result PATHOLOGY [facility] Laboratory Receiving [address] [place] [address] from Last 3 Months or Most Recently Relevant to Health Maintenance Insurance [facility] CHOICE PLUS [facility] CHOICE PLUS [facility] CHOICE PLUS Advance Directives For more information, please contact: [phone] Documents on File Type Date Recorded Patient Emergency Vehicle Dispatcher Expl anation ADVANCE DIRECTIVE 08/02/2022 Care Teams Chief Program Officer Relationship Specialty Start Date End Date Jade Fair NP [address] [facility] [address] [place] [address] PCP - General Family Medicine 05/01/21 Evelina Kim PA [address] [place] [address] Physician Photograph Finisher Neurology 10/16/21
[2024-07-05 08:04] VITALS: BP 128/83; PULSE 91; RESP 16; TEMP 36.4; O2SAT 100
--- OUTSIDE RECORDS SUMMARY | 2024-07-05 08:23 | XMS_ITS | Encounter Summary ---
Author Organization [facility] Address [address] [place] [address] Care Team Providers Care Assistant Womens Volleyball Coach Name Role Phone Unavailable Primary Care Provider Unavailabl e Reason for Visit * Reason Onset Date Comments Other 11/25/2015 Encounter Details Date Type Department Care Team (Late st Contact Info) Description 11/25/2015 Telephone [facility] Program [address] [facility] [place] [address] Frida Santiago MD [address] [facility]. [facility] [address] [place] [address] Other Social History Tobacco Use Types Packs/Day [...]
--- OUTSIDE RECORDS SUMMARY | 2024-07-05 08:23 | XMS_ITS | Encounter Summary ---
Author Organization [facility] Address [address] [place] [address] Care Team Providers Care Data Compiler Name Role Phone Unavailable Primary Care Provider Unavailabl e Reason for Visit * Reason Onset Date Comments Other 11/09/2015 Encounter Details Date Type Department Care Team (Late st Contact Info) Description 11/09/2015 Telephone [facility] Program [address] [facility] [place] [address] Frida Santiago MD [address] [facility] [facility] [address] [place] [address] Other Social History Tobacco Use Types Packs/Day [...]
--- OUTSIDE RECORDS SUMMARY | 2024-07-05 08:24 | XMS_ITS | Clinical Summary ---
Author Organization [facility] Address [address] [facility] [address] [place] [address] Phone Care Team Providers Care Enterprise Infrastructure Architect Name Role Phone Jade Fair NP Primary [...] 04/01/2024 Assessment & Plan (04/01/2024 1:28 PM CUT OUT MARKER): Dizziness more likely the result of hypotension [...] 03/05/2023 Assessment & Plan (03/05/2023 9:25 AM CUT OUT MARKER): Continue with prilosec for acid reflux. todays [...] ordered Assessment & Plan (03/01/2022 1:56 PM CUT OUT MARKER): Bariatric labs ordered Iron deficiency anemia 11/22/2021 Assessment & Plan (04/01/2024 1:27 PM CUT OUT MARKER): Repeat anemia panel Mild dizziness noted; more likely related to drop in BP as opposed to decreased hemoglobin Assessment & Plan (11/22/2021 10:45 AM CDT): Repeat cbc Hypertriglyceridemia 10/02/2021 Assessment & Plan (07/09/2023 3:20 PM CDT): Lipid panel ordered Assessment & Plan (03/05/2023 9:25 AM CUT OUT MARKER): Repeat labs next visit Assessment & Plan (10/02/2021 2:33 PM CDT): Repeat labs 6 months Idiopathic intracranial hypertension 06/30/2021 Overview (10/16/2021): - 04/2021 seen by assistant family teacher at [facility], noted to have disc edema OD [...] Plan (11/01/2023 9:25 AM CDT): =seen by assistant family teacher at [facility], noted to have disc edema OD [...] time Assessment & Plan (04/02/2022 1:53 PM CUT OUT MARKER): sLIGHT WORSENING OF ANXIETY AND DEPRESSION NOTED. [...] INHIBITOR. Assessment & Plan (02/19/2022 3:11 PM CUT OUT MARKER): Papilledema resolved today, OCT with normal RNFL [...] diamox Assessment & Plan (05/24/2021 3:35 PM CUT OUT MARKER): Follow up with neuro-opthamology Arthritis 05/08/2021 Assessment & Plan (05/08/2021 10:28 AM CUT OUT MARKER): Joint pain that is intermittent, ordered lab work to rule out any kind of autoimmune process. Referral to Neurology. Numbness and tingling in right hand 05/05/2021 Assessment & Plan (05/08/2021 10:28 AM CUT OUT MARKER): Ordered referral to neurology; EMG testing to be performed; lab work as noted Tinnitus, right ear 04/26/2021 Assessment & Plan (05/08/2021 10:27 AM CUT OUT MARKER): I do want her to continue with MRI scan of the brain to rule out any kind of tumor in the ear canal or other forms of tumors in the brain Assessment & Plan (05/01/2021 1:38 PM CUT OUT MARKER): Due to new tinnitus of the right eat along with headache I recommend MRI of the brain to rule out tumors Anxiety 04/04/2021 Assessment & Plan (04/01/2024 1:27 PM CUT OUT MARKER): Stable on current dose of benzo; instructed [...] properties. Assessment & Plan (03/05/2023 9:24 AM CUT OUT MARKER): Stable on current dose of benzo; instructed [...] understanding. Assessment & Plan (04/04/2021 10:57 AM CUT OUT MARKER): Started on xanax short term; up to 3 months for anxiety and depression; instructed on benzo use; SIDE EFFECT of benzos, potential for addiction Major depressive disorder, recurrent, moderate 0 04/03/2021 Assessment & Plan (04/02/2022 1:53 PM CUT OUT MARKER): sLIGHT WORSENING OF ANXIETY AND DEPRESSION NOTED. [...] 11/06/2013 Assessment & Plan (04/01/2024 1:17 PM CUT OUT MARKER): Given samples of [facility] ODT Assessment & Plan (11/01/2023 9:25 AM CDT): Improvement in migraines with weight loss noted. Assessment & Plan (05/08/2021 10:27 AM CUT OUT MARKER): Considered migraines causing issues however patient does [...] 04/01/2024 Assessment & Plan (03/11/2024 9:31 AM CUT OUT MARKER): Patient was given antibiotics instructed to call [...] (04/06/2022): Added automatically from request for surgery [id number] Jaundice 03/01/2022 03/04/2023 Assessment & Plan (03/01/2022 1:56 PM CUT OUT MARKER): CMP ordered to evaluate for bilirubin and liver enzymes Acute non-recurrent frontal sinusitis 01/29/2022 03/04/2023 Assessment & Plan (01/29/2022 1:59 PM CUT OUT MARKER): Presents with acute sinusitis, instructed patient on [...] 11/13/202107/04 Assessment & Plan (04/02/2022 1:52 PM CUT OUT MARKER): SLIGHT WORSENING OF ANXIETY AND DEPRESSION NOTED. [...] 10/02/202102/2023 Assessment & Plan (04/02/2022 1:52 PM CUT OUT MARKER): BMI Follow-up includes: nutrition counseling. Assessment & Plan (03/01/2022 1:56 PM CUT OUT MARKER): BMI Follow-up includes: nutrition counseling. b Assessment [...] rate. Assessment & Plan (05/31/2021 1:05 PM CUT OUT MARKER): Patient presents for weight loss education. Today we discussed getting even more active. We discussed how to optimize health through exercise. adipex ordered; follow up in 1 month Sensory disorder of smell 05/05/2021 Assessment & Plan (05/08/2021 10:27 AM CUT OUT MARKER): Continue with MRI of the brain; referral to neurology New daily persistent headache 04/26/2021 05/05/2021 Assessment & Plan (05/01/2021 1:38 PM CUT OUT MARKER): MRI of the brain ordered; ordered reglan and toradol for suspect acute migraine Major depressive disorder, recurrent, mild 04/03/2021 04/02/2022 Major depressive disorder, r ecurrent, unspecified 04/03/2021 04/02/2022 Assessment & Plan (04/04/2021 10:56 AM CUT OUT MARKER): STARTED ON ZOLOFT 25MG Instructed patient on [...] counseling. Assessment & Plan (05/31/2021 1:05 PM CUT OUT MARKER): BMI Follow-up includes: nutrition counseling. Assessment & Plan (05/24/2021 3:35 PM CUT OUT MARKER): BMI Follow-up includes: nutrition counseling and exercise counseling. Assessment & Plan (05/08/2021 10:25 AM CUT OUT MARKER): BMI Follow-up includes: nutrition counseling. Assessment & Plan (03/28/2021 1:23 PM CUT OUT MARKER): BMI Follow-up includes: nutrition counseling. Dizziness 03/27/2021 05/05/2021 Assessment & Plan (05/01/2021 1:38 PM CUT OUT MARKER): MRI of the brain ordered due to headaches and dizziness Assessment & Plan (04/04/2021 10:57 AM CUT OUT MARKER): Improvement noted with meclizine and analia maneuver; call if worsening of dizziness occurs Assessment & Plan (03/28/2021 1:22 PM CUT OUT MARKER): Likely benign positional vertigo, instructed patient on [...] Department Care Team Description 04/27/2024 Orders Only [facility] Primary Care at [address] [address] Jade Fair, [place] Iron deficiency [...] on file Legal Sex Female 10:52 AM CUT OUT MARKER Gender Identity Not on file Sexual Orientation [...] Comments Blood Pressure 126/80 04/01/2024 12:55 PM CUT OUT MARKER Pulse 85 04/01/2024 12:55 PM CUT OUT MARKER Temperature 37 C (98.6 F) 03/11/2024 8:27 AM CUT OUT MARKER Respiratory Rate 14 08/17/2022 8:10 AM CDT Oxygen Saturation 98% 04/01/2024 12:55 PM CUT OUT MARKER Inhaled Oxygen Concentration - - Weight 79.4 kg (175 lb) 04/01/2024 12:55 PM CUT OUT MARKER Height 165.1 cm (5' 5 ) 04/01/2024 12:55 PM CUT OUT MARKER Body Mass Index 29.12 04/01/2024 12:55 PM CUT OUT MARKER Plan of Treatment Health Maintenance Due Date [...] CDT 12/13/2023 6:19 PM CDT Paula Wilson [facility] LAB MICROBIOLOGY - GENERA L ORDERABLES Final Result [facility] [address] [facility] Department [place] [address] * Pap with reflex to High Risk HPV and Genotyping (Cytology Component) (12/07/2022 3:23 PM CDT) Thin prep (Pap test) 12/07/2022 3:23 PM CDT 12/11/2022 11:07 AM CDT Narrative PATHOLOGY [facility] - 12/17/2022 1:00 PM CDT EPIC results best viewed via link to PDF [place] [id number] [place], [place] [address] Tele: Vijaya Lopez MD - Wearing Apparel Folder CYTOLOGY REPORT Note to Patients: This report [...] the details. Patient Name: RUTH PANDA Address: [address] [place] [id number] Gender: F : 1995 (Age: 27) Service: Location: [facility] : [id number] [facility] #: [id number] Patient Type: [facility] SPECIMEN Taken: 12/07/2022 Reported: 12/17/2022 Physician(s): Paula Wilson CNM FINAL DIAGNOSIS: SOURCE OF SPECIMEN - ThinPrep Pap w/ reflex HPV: STATEMENT OF ADEQUACY Source: Cervical/Endocervical - Satisfactory for interpretation - Endocervical /Transformation Zone component present - Case screened using computer assisted imaging technology and manually re- screened by a career placement services counselor. GENERAL CATEGORIZATION: - Negative for intraepithelial lesion [...] LAB CYTOLOGY ORDERABLES F inal Result PATHOLOGY [facility] Laboratory Receiving [address] [place] [address] from Last 3 Months or Most Recently Relevant to Health Maintenance Insurance [facility] CHOICE PLUS [facility] CHOICE PLUS [facility] CHOICE PLUS Advance Directives For more information, please contact: [phone] Documents on File Type Date Recorded Patient Animal Trapper Expl anation ADVANCE DIRECTIVE 08/02/2022 Care Teams Enterprise Infrastructure Architect Relationship Specialty Start Date End Date Jade Fair NP [address] [facility] [address] [place] [address] PCP - General Family Medicine 05/01/21 Evelina Kim PA [address] [place] [address] Physician Corncob Pipe Supervisor Neurology 10/16/21
--- OUTSIDE RECORDS SUMMARY | 2024-07-05 08:24 | XMS_ITS | Encounter Summary ---
Author Organization [facility] Address [address] [place] [address] Phone Care Team Providers Care Fuse Cup Expander Name Role Phone Jade Fair NP Primary Care Provider + Evelina Kim Unavailable Encounter Details Date Type Department Care Team (Late st Contact Info) Description 09/24/2023 E-Visit [facility] Dermatology [address] [facility] [address] [place] [address] Elizabeth Gottlieb MD PhD [address] [facility] [address] [place], [place] [id number] Dry lip patch Social History Tobacco Use [...] on file Legal Sex Female 10:52 AM WARP KNIT OPERATOR Gender Identity Not on file Sexual Orientation Not on file documented as of this encounter Plan of Treatment Not on file documented as of this encounter Visit Diagnoses Not on filedocumented in this encounter Additional Health Concerns Infection Onset Date Last Indicated Resolved Time COVID: Suspected 03/11/2024 03/11/2024 03/11/2024 8:58 AM WARP KNIT OPERATOR documented as of this encounter Care Teams Fuse Cup Expander Relationship Specialty Start Date End Date Jade Fair NP [address] [facility] [address] [place] [address] PCP - General Family Medicine 05/01/21 Evelina Kim PA [address] [place] [address] Physician Supervisor Respiratory Neurology 10/16/21 documented as of this encounter
--- OUTSIDE RECORDS SUMMARY | 2024-07-05 08:24 | XMS_ITS | Clinical Summary ---
Author Organization [facility] Address [address] [place] [address] Phone Care Team Providers Care Forestry Engineer Name Role Phone Unavailable Primary Care Provider [...] history exists Medical Devices Implanted Type Area Residential Remodeling Subcontractor Device Identifier Shelf Expiration Date Model / Serial / Lot Seamguard Endogia 60 Blk [id number] - [id number] Implanted:Qt y: 1 on 11/13/2021 by Pietro Ferrer MD at [facility] Biological N/A: St[employer] [id number] 06/19/2024 12BSGTRI 60B / / [id number] Seamguard Endogia 60 Blk [id number] - [id number] Implanted:Qt y: 1 on 11/13/2021 by Pietro Ferrer MD at [facility] Biological N/A: [employer] [id number] 06/19/2024 12BSGTRI 60B / / [id number] Seamguard Endogia 60 Prpl [id number] - [id number] Implanted:Qt y: 1 on 11/13/2021 by Pietro Ferrer MD at [facility] Biological N/A: [employer] [id number] 06/19/2024 12BSGTRI 60P / / [id number] Seamguard Endogia 60 Prpl [id number] - [id number] Implanted:Qt y: 1 on 11/13/2021 by Pietro Ferrer MD at [facility] Biological N/A: [employer] [id number] 06/19/2024 12BSGTRI 60P / / [id number] Seamguard Endogia 60 Prpl [id number] - [id number] Implanted:Qt y: 1 on 11/13/2021 by Pietro Ferrer MD at [facility] Biological N/A: Stom[employer] [id number] 2024 12BSGTRI 60P / / [id number] Iud Insurance [employer] OPEN CHOICE PPO [facility] [address] RX [employer] PLANS (INTERNAL) [facility] [employer] Advance Directives For more information, please contact: [phone] * Full Code (Latest Code Status on File) Date Activated Date Inactivated Comments 11/13/2021 12:49 PM 11/15/2021 12:52 PM * Full Code Date Activated Date Inactivated Comments 11/13/2021 11:07 AM 11/13/2021 12:49 PM * Full Code Date Activated Date Inactivated Comments 09/03/2016 6:44 PM 09/06/2016 12:50 PM
--- OUTSIDE RECORDS SUMMARY | 2024-07-05 08:24 | XMS_ITS | Referral Summary ---
Author Organization [facility] Address [address] [facility] [address] [place] [address] Phone Care Team Providers Care Morphologist Name Role Phone Jade Fair NP Primary Care Provider + Evelina Kim Unavailable Encounters Date Type Department Care Team Description 04/27/2024 Orders Only [facility] Primary Care at [address] [address] Jade Fair NP Iron deficiency [...] 04/01/2024 Assessment & Plan (04/01/2024 1:28 PM ENVIRONMENTAL SERVICES ASSOCIATE): Dizziness more likely the result of hypotension [...] 03/05/2023 Assessment & Plan (03/05/2023 9:25 AM ENVIRONMENTAL SERVICES ASSOCIATE): Continue with prilosec for acid reflux. todays [...] ordered Assessment & Plan (03/01/2022 1:56 PM ENVIRONMENTAL SERVICES ASSOCIATE): Bariatric labs ordered Iron deficiency anemia 11/22/2021 Assessment & Plan (04/01/2024 1:27 PM ENVIRONMENTAL SERVICES ASSOCIATE): Repeat anemia panel Mild dizziness noted; more likely related to drop in BP as opposed to decreased hemoglobin Assessment & Plan (11/22/2021 10:45 AM CDT): Repeat cbc Hypertriglyceridemia 10/02/2021 Assessment & Plan (07/09/2023 3:20 PM CDT): Lipid panel ordered Assessment & Plan (03/05/2023 9:25 AM ENVIRONMENTAL SERVICES ASSOCIATE): Repeat labs next visit Assessment & Plan (10/02/2021 2:33 PM CDT): Repeat labs 6 months Idiopathic intracranial hypertension 06/30/2021 Overview (10/16/2021): - 04/2021 seen by linux support engineer at [facility], noted to have disc [...] Plan (11/01/2023 9:25 AM CDT): =seen by linux support engineer at [facility], noted to have disc [...] time Assessment & Plan (04/02/2022 1:53 PM ENVIRONMENTAL SERVICES ASSOCIATE): sLIGHT WORSENING OF ANXIETY AND DEPRESSION NOTED. [...] INHIBITOR. Assessment & Plan (02/19/2022 3:11 PM ENVIRONMENTAL SERVICES ASSOCIATE): Papilledema resolved today, OCT with normal RNFL [...] diamox Assessment & Plan (05/24/2021 3:35 PM ENVIRONMENTAL SERVICES ASSOCIATE): Follow up with neuro-opthamology Arthritis 05/08/2021 Assessment & Plan (05/08/2021 10:28 AM ENVIRONMENTAL SERVICES ASSOCIATE): Joint pain that is intermittent, ordered lab work to rule out any kind of autoimmune process. Referral to Neurology. Numbness and tingling in right hand 05/05/2021 Assessment & Plan (05/08/2021 10:28 AM ENVIRONMENTAL SERVICES ASSOCIATE): Ordered referral to neurology; EMG testing to be performed; lab work as noted Tinnitus, right ear 04/26/2021 Assessment & Plan (05/08/2021 10:27 AM ENVIRONMENTAL SERVICES ASSOCIATE): I do want her to continue with MRI scan of the brain to rule out any kind of tumor in the ear canal or other forms of tumors in the brain Assessment & Plan (05/01/2021 1:38 PM ENVIRONMENTAL SERVICES ASSOCIATE): Due to new tinnitus of the right eat along with headache I recommend MRI of the brain to rule out tumors Anxiety 04/04/2021 Assessment & Plan (04/01/2024 1:27 PM ENVIRONMENTAL SERVICES ASSOCIATE): Stable on current dose of benzo; instructed [...] properties. Assessment & Plan (03/05/2023 9:24 AM ENVIRONMENTAL SERVICES ASSOCIATE): Stable on current dose of benzo; instructed [...] understanding. Assessment & Plan (04/04/2021 10:57 AM ENVIRONMENTAL SERVICES ASSOCIATE): Started on xanax short term; up to 3 months for anxiety and depression; instructed on benzo use; SIDE EFFECT of benzos, potential for addiction Major depressive disorder, recurrent, moderate 0 04/03/2021 Assessment & Plan (04/02/2022 1:53 PM ENVIRONMENTAL SERVICES ASSOCIATE): sLIGHT WORSENING OF ANXIETY AND DEPRESSION NOTED. [...] 11/06/2013 Assessment & Plan (04/01/2024 1:17 PM ENVIRONMENTAL SERVICES ASSOCIATE): Given samples of [facility] ODT Assessment & Plan (11/01/2023 9:25 AM CDT): Improvement in migraines with weight loss noted. Assessment & Plan (05/08/2021 10:27 AM ENVIRONMENTAL SERVICES ASSOCIATE): Considered migraines causing issues however patient does [...] 04/01/2024 Assessment & Plan (03/11/2024 9:31 AM ENVIRONMENTAL SERVICES ASSOCIATE): Patient was given antibiotics instructed to call [...] (04/06/2022): Added automatically from request for surgery [id number] Jaundice 03/01/2022 03/04/2023 Assessment & Plan (03/01/2022 1:56 PM ENVIRONMENTAL SERVICES ASSOCIATE): CMP ordered to evaluate for bilirubin and liver enzymes Acute non-recurrent frontal sinusitis 01/29/2022 03/04/2023 Assessment & Plan (01/29/2022 1:59 PM ENVIRONMENTAL SERVICES ASSOCIATE): Presents with acute sinusitis, instructed patient on [...] 11/13/202107/04 Assessment & Plan (04/02/2022 1:52 PM ENVIRONMENTAL SERVICES ASSOCIATE): SLIGHT WORSENING OF ANXIETY AND DEPRESSION NOTED. [...] 10/02/202102/2023 Assessment & Plan (04/02/2022 1:52 PM ENVIRONMENTAL SERVICES ASSOCIATE): BMI Follow-up includes: nutrition counseling. Assessment & Plan (03/01/2022 1:56 PM ENVIRONMENTAL SERVICES ASSOCIATE): BMI Follow-up includes: nutrition counseling. b Assessment [...] rate. Assessment & Plan (05/31/2021 1:05 PM ENVIRONMENTAL SERVICES ASSOCIATE): Patient presents for weight loss education. Today we discussed getting even more active. We discussed how to optimize health through exercise. adipex ordered; follow up in 1 month Sensory disorder of smell 05/05/2021 Assessment & Plan (05/08/2021 10:27 AM ENVIRONMENTAL SERVICES ASSOCIATE): Continue with MRI of the brain; referral to neurology New daily persistent headache 04/26/2021 05/05/2021 Assessment & Plan (05/01/2021 1:38 PM ENVIRONMENTAL SERVICES ASSOCIATE): MRI of the brain ordered; ordered reglan and toradol for suspect acute migraine Major depressive disorder, recurrent, mild 04/03/2021 04/02/2022 Major depressive disorder, r ecurrent, unspecified 04/03/2021 04/02/2022 Assessment & Plan (04/04/2021 10:56 AM ENVIRONMENTAL SERVICES ASSOCIATE): STARTED ON ZOLOFT 25MG Instructed patient on [...] counseling. Assessment & Plan (05/31/2021 1:05 PM ENVIRONMENTAL SERVICES ASSOCIATE): BMI Follow-up includes: nutrition counseling. Assessment & Plan (05/24/2021 3:35 PM ENVIRONMENTAL SERVICES ASSOCIATE): BMI Follow-up includes: nutrition counseling and exercise counseling. Assessment & Plan (05/08/2021 10:25 AM ENVIRONMENTAL SERVICES ASSOCIATE): BMI Follow-up includes: nutrition counseling. Assessment & Plan (03/28/2021 1:23 PM ENVIRONMENTAL SERVICES ASSOCIATE): BMI Follow-up includes: nutrition counseling. Dizziness 03/27/2021 05/05/2021 Assessment & Plan (05/01/2021 1:38 PM ENVIRONMENTAL SERVICES ASSOCIATE): MRI of the brain ordered due to headaches and dizziness Assessment & Plan (04/04/2021 10:57 AM ENVIRONMENTAL SERVICES ASSOCIATE): Improvement noted with meclizine and analia maneuver; call if worsening of dizziness occurs Assessment & Plan (03/28/2021 1:22 PM ENVIRONMENTAL SERVICES ASSOCIATE): Likely benign positional vertigo, instructed patient on [...] on file Legal Sex Female 10:52 AM ENVIRONMENTAL SERVICES ASSOCIATE Gender Identity Not on file Sexual Orientation Not on file Last Filed Vital Signs Vital Sign Reading Time Taken Comments Blood Pressure 126/80 04/01/2024 12:55 PM ENVIRONMENTAL SERVICES ASSOCIATE Pulse 85 04/01/2024 12:55 PM ENVIRONMENTAL SERVICES ASSOCIATE Temperature 37 C (98.6 F) 03/11/2024 8:27 AM ENVIRONMENTAL SERVICES ASSOCIATE Respiratory Rate 14 08/17/2022 8:10 AM CDT Oxygen Saturation 98% 04/01/2024 12:55 PM ENVIRONMENTAL SERVICES ASSOCIATE Inhaled Oxygen Concentration - - Weight 79.4 kg (175 lb) 04/01/2024 12:55 PM ENVIRONMENTAL SERVICES ASSOCIATE Height 165.1 cm (5' 5 ) 04/01/2024 12:55 PM ENVIRONMENTAL SERVICES ASSOCIATE Body Mass Index 29.12 04/01/2024 12:55 PM ENVIRONMENTAL SERVICES ASSOCIATE Plan of Treatment Not on file Procedures [...] CDT 12/13/2023 6:19 PM CDT Paula Wilson [facility] LAB MICROBIOLOGY - GENERA L ORDERABLES Final Result [facility] [place] [address] [place] [address] * Pap with reflex to High Risk HPV and Genotyping (Cytology Component) (12/07/2022 3:23 PM CDT) Thin prep (Pap test) 12/07/2022 3:23 PM CDT 12/11/2022 11:07 AM CDT Narrative PATHOLOGY [facility] - 12/17/2022 1:00 PM CDT EPIC results best viewed via link to PDF [place] [id number] [place], [place] [address] Tele: Vijaya Lopez MD - Meter Technician CYTOLOGY REPORT Note to Patients: This report [...] the details. Patient Name: RUTH PANDA Address: [address] [place] [address] [place] [address] Gender: F : 1995 (Age: 27) Service: Location: N : [id number] [facility] #: [id number] Patient Type: [facility] SPECIMEN Taken: 12/07/2022 Reported: 12/17/2022 Physician(s): Paula Wilson CNM FINAL DIAGNOSIS: SOURCE OF SPECIMEN - ThinPrep Pap w/ reflex HPV: STATEMENT OF ADEQUACY Source: Cervical/Endocervical - Satisfactory for interpretation - Endocervical /Transformation Zone component present - Case screened using computer assisted imaging technology and manually re- screened by a delivery agent. GENERAL CATEGORIZATION: - Negative for intraepithelial lesion [...] LAB CYTOLOGY ORDERABLES F inal Result PATHOLOGY [facility] Laboratory Receiving [address] [place] [address] from Last 3 Months or Most Recently Relevant to Health Maintenance Insurance [facility] CHOICE PLUS [facility] CHO[facility] PLUS [facility] CHO[facility] PLUS Advance Directives For more information, please contact: [phone] Documents on File Type Date Recorded Patient Sales Force Developer Expl anation ADVANCE DIRECTIVE 08/02/2022 Care Teams Morphologist Relationship Specialty Start Date End Date Jade Fair NP [address] [facility] [address] [place] [address] PCP - General Family Medicine 05/01/21 Evelina Kim PA [address] [place] [address] Physician Medical Research Associate Neurology 10/16/21
--- OUTSIDE RECORDS SUMMARY | 2024-07-05 08:24 | XMS_ITS | Continuity of Care Document ---
Author Organization [facility] Address [address] [place] [address] [address] [place] [address] Phone Care Team Providers Care Banking Center Manager Name Role Phone Virgilio FRANKEL MD, Marline Unavailable Unavailable Procedures Procedure Date GDX Optic Nerve GDX Optic Nerve Results Test Name Date and Time Measure Units Reference Range Abnormal Flag Status Commen ts Panel Description: [id number] Final Image Zeiss Result 1 Advance Directives Directive Yes / No Effective Date File Name No Information Encounters Encounter Description Practice Location Reason(s) For Visit Diagnoses Date Provider Providers Copied on Encounter [facility], [address] [place] [address], [id number], tel:[phone] OPH CONSULT FABRIZIO HODGES No Information 2 Virgilio Horan. [address] [place] [address] [address], [place], [address], [place]. tel:[phone] Referring Provider: Sabra Smith MD, [address] [place] [address], [place], [address]. tel:[phone] [facility], [address] [place] [address] [address] [place], [id number], [place] tel:[phone] OPH CONSULT FABRIZIO HODGES No Information 2 Virgilio Horan. [address] [place] [address] [address], [place], [address], [place]. tel:[phone] Referring Provider: Sabra Smith MD, [address] [place] [address], [place], [address]. tel:[phone] Family History Family Member Type Diagnosis Age At Onset No Information Payers Payer name Insurance type Covered constitution party ID Lalit mcqueen(s) Claudy [id number] Social History Type Description Quantity Date Captured [...]
--- OUTSIDE RECORDS SUMMARY | 2024-07-05 08:24 | XMS_ITS | Clinical Summary ---
Author Organization [facility] Address [address] [place] [address] Care Team Providers Care Virtual Classroom Manager Name Role Phone Jade Fair NAPHTHALENE OPERATOR HELPER-COVER CUTTER MACHINE Primary Care Provider + Source Comments [facility],non-owned Affiliates and Associated Physician Practices is amultiple site organization consisting of ambulatory clinics and hospital sitesin [place], [place], [place] and [place]. This disclosure is being madepursuant to the Care Everywhere program and may not contain all information available regarding this patient. Last updated 17[facility] Allergies No known active allergies Medications * [...] (FLONASE SENSIMIST/VERAMY ST) 27.5 MCG/SPRAY nasal spray [place] 1 Inhaler into each nostril 2 times [...] over weekend) - CALL PATIENT DIRECTLY AT [phone] IF CALLING WITH RESULTS. 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 Reactive cellular changes present. 08/15/2021 3:15 PM CDT [facility] Other Inflammation present. 08/15/2021 3:15 PM CDT [facility] Pap Footnote The Pap Smear is a screening test. False positive and false negative results occur. Negative results do not preclude abnormalities, thus clinical correlation is required. This specimen was evaluated by the SPark!Prep Imaging System along with an additional manual rescreening by a client solutions manager and/or pathologist. 08/15/2021 3:15 PM CDT [facility] Embedded Images 3:15 PM CDT [facility] Pathology/Cytolo gy MISCELLANEOUS SAMPLES / Unknown 08/09/2021 3:15 PM CDT 08/10/2021 12:29 PM CDT Tristen Loza MD LAB - PATHOLOGY/CYTOLOGY ORDER TRA Final Result [facility] [address] [address], [facility] [phone] * HIV-1 HIV-2 ANTIBODY + HIV P24 [...] purpose. For additional information please refer to http://education.SwingTime.KonnectAgain/faq/FMT062 (This link is being provided for informational/ educational purposes only.) The performance of this assay has not been clinically validated in patients less than 2 years old. Test Performed at: [facility] [address] [place] [address] TWYLA FAIR DO,MPH Blood BLOOD SPECIMEN / Unknown 08/09/2021 08/09/2021 2:58 PM CDT Tristen Loza MD LAB - CHEMISTRY ORDERABLES Fin al Result Performing Organization Address City/State/[facility] Co de Phone Number [facility] [address] [place] [address] from Last 3 Months or Most Recently Relevant to Health Maintenance Insurance [facility] MEDICAID - [place] [facility] AETNA Care Teams Virtual Classroom Manager Relationship Specialty Start Date End Date Jade Fair, NAPHTHALENE OPERATOR HELPER-COVER CUTTER MACHINE [address] [place] [address] PCP - General Nurse Practitioner Family 11/27/21
--- NOTE | 2024-07-05 08:28 | ECG_ITS ---
Test Date: 2024-07-05 08:46:57 Measurements Intervals [place] Rate: 85 P: 15 WV: 164 QRS: 7 QRSD: 81 T: 31 QT: 344 QTc: 411 Interpretive Statements SINUS RHYTHM BASELINE ARTIFACT- I, II, III, AVR, AVL NORMAL ECG No previous ECG available for comparison Electronically Signed On 07-05-2024 14:40:40 CDT by Sonido Rodriguez D.O.
[2024-07-05 08:30] LABS: BEDSIDEPREGUCG Negative (Negative)
[2024-07-05 08:41] LABS: Basophils Percent Auto 0.7 % (0.2-1.2); Eosinophils Absolute Auto 0.1 K/mm3 (0-0.3); Hematocrit 39.3 % (37.0-47.0); Hemoglobin 13.1 g/dL (12.0-15.0); Immature Granulocyte Absolute 0.01 K/mm3 (0.00-0.031); Immature Granulocyte Percent A 0.2 % (0-0.5); Lymphocytes Absolute Auto 1.52 K/mm3 (0.9-3.2); Lymphocytes Percent Auto 28.3 % (18.3-44.2); Mean Corpuscular HGB Conc 33.3 g/dl (32-36); Mean Corpuscular Hemoglobin 30.7 pg (26-34); Mean Platelet Volume 10.1 fl (7.4-10.4); Monocytes Absolute Auto 0.5 K/mm3 (0.1-0.6); Monocytes Percent Auto 9.7 % (2.6-8.5); Neutrophils Absolute Auto 3.2 K/mm3 (1.3-6.7); Neutrophils Percent Auto 59.1 % (45.5-73.1); Platelet Count Result 269 k/mm3 (150-375); Red Blood Count 4.27 M/mm3 (4.2-5.4); Red Cell Distribution Width 12.2 % (11.5-14.5); White Blood Count 5.4 K/mm3 (4.5-10.0)
[2024-07-05] MEDS: SODIUM CHLORIDE 0.9% IV 1,000 ML 999 ML IV CONT (08:53)
[2024-07-05] MEDS: KETOROLAC 15 MG/ML VIAL (*BKC) IV PUSH (08:53)
[2024-07-05] MEDS: FAMOTIDINE 20 MG/2 ML VIAL IV PUSH (08:53)
[2024-07-05 08:59] LABS: Alanine Aminotransferase 14 U/L (6-35); Albumin Level 4.1 g/dL (3.5-5.1); Alkaline Phosphatase 56 U/L (38-126); Anion Gap 8 mmol/L (4-12); Aspartate Amino Transferase 21 U/L (14-36); Bilirubin,Total 0.6 mg/dL (0.2-1.3); Blood Urea Nitrogen 13 mg/dL (7-17); Calcium 8.8 mg/dL (8.4-10.2); Carbon Dioxide 27 mmol/L (22-30); Chloride 104 mmol/L (98-107); Estimated CRCL calculation 111 ml/min; Estimated Glomerular Filt Rate > 60; Glucose 92 mg/dL (65-110); Lipase 69 U/L (23-300); Potassium 3.8 mmol/L (3.4-5.0); Sodium 139 mmol/L (137-145)
[2024-07-05 09:04] LABS: D Dimer 0.24 ug/mL (<0.48)
[2024-07-05 09:10] LABS: NT Pro B Type Natriuretic Pept 44 pg/mL (19.9-100); Troponin I < 0.012 ng/mL (0.000-0.034)
[2024-07-05 09:19] LABS: Influenza A QL RT-PCR Negative (Negative); Influenza B QL RT-PCR Negative (Negative); RSV RNA, RT-PCR Negative (Negative); SARS-CoV-2 RNA PCR Negative (Negative)
--- NOTE | 2024-07-05 10:19 | ED_ITS ---
HPI - General Adult General Chief complaint: Unspecified Stated complaint: right side of body hurts Time Seen by Provider: 07/05/24 08:07 History of Present Illness HPI narrative: This is a 29-year-old female presenting ED with chief complaint of right-sided chest pain. Patient has been having sharp pain on the right side of her ribcage that is worse with deep inspiration for the last 3 or 4 days. She has been using Motrin with some relief. She does not have any shortness of breath, productive cough, risk factors for DVT PE or trauma. No recent viral illness Related Data Allergies Allergy/AdvReac Type Severity Reaction Status Date / Time No Known Allergies Allergy Verified 07/05/24 08:10 [facility] Past Medical History Medical History Gallstones GERD (gastroesophageal reflux disease) Surgical History Surgical History (Updated 07/29/22 @ 19:07 by Ita Wynn PA-C) History of gastric surgery Social History Social History (Updated 07/29/22 @ 19:07 by Ita Wynn PA-C) Smoking status: Never smoker Exam 2 Narrative: APPEARANCE: No apparent distress. Head: atraumatic. EYES: EOMI, NOSE: Atraumatic NECK: Trachea midline RESPIRATORY: No increased rate of breathing clear to auscultation CARDIOVASCULAR: RRR, no peripheral ABDOMINAL: Non-distended soft nontender MUSCULOSKELETAl: No obvious deformities NEURO: Alert. Moving 4/4 extremities SKIN:: Warm, dry. Normal color PSYCHIATRIC: Normal affect Course Vital Signs Vital signs: Vital Signs Temperature 97.6 F 07/05/24 08:04 Pulse Rate 91 07/05/24 08:04 Respiratory Rate 16 07/05/24 08:04 Blood Pressure 128/83 07/05/24 08:04 Pulse Oximetry 100 07/05/24 08:04 Oxygen Delivery Room Air 07/05/24 08:04 Temperature 97.6 F 07/05/24 08:04 Pulse Rate 91 07/05/24 08:04 Respiratory Rate 16 07/05/24 08:04 Blood Pressure 128/83 07/05/24 08:04 Pulse Oximetry 100 07/05/24 08:04 Oxygen Delivery Room Air 07/05/24 08:04 Medical Decision Making MDM Narrative Medical decision making narrative: -Course: 29-year-old female presenting for right-sided pleuritic pain. Chest x-ray clear. D-dimer BNP and troponin negative. Laboratory studies within normal limits. Patient improved dramatically after Toradol. Patient be discharged with a presumptive diagnosis of pleurisy. Given return precautions and primary care follow-up -DDX includes but is not limited to: Pneumonia, PE, pneumothorax pleurisy, viral syndrome, pericarditis -Co-morbidities complicating care: Gastric sleeve Independent EKG interpretation: Rhythm [sinus], Rate [85], [place] -[normal], [place] -[normal], QRS [narrow], QTC [normal], T waves -[negative for concerning inversions], ST Segments - [Negative for concerning elevations] Final interpretations: [Normal Sinus Rhythm] Vital Signs Vital Signs: Vital Signs Temperature 97.6 F 07/05/24 08:04 Pulse Rate 91 07/05/24 08:04 Respiratory Rate 16 07/05/24 08:04 Blood Pressure 128/83 07/05/24 08:04 Pulse Oximetry 100 07/05/24 08:04 Oxygen Delivery Room Air 07/05/24 08:04 Temperature 97.6 F 07/05/24 08:04 Pulse Rate 91 07/05/24 08:04 Respiratory Rate 16 07/05/24 08:04 Blood Pressure 128/83 07/05/24 08:04 Pulse Oximetry 100 07/05/24 08:04 Oxygen Delivery Room Air 07/05/24 08:04 Lab Data 07/05/24 08:34 07/05/24 08:34 Labs: Lab Results 07/05/24 07/05/24 Range/Units 08:25 08:34 WBC 5.4 (4.5-10.0) K/mm3 RBC 4.27 (4.2-5.4) M/mm3 Hgb 13.1 (12.0-15.0) g/dL Hct 39.3 (37.0-47.0) % MCV 92.0 (80-100) fl MCH 30.7 (26-34) pg MCHC 33.3 (32-36) g/dl RDW 12.2 (11.5-14.5) % Plt Count 269 (150-375) k/mm3 MPV 10.1 (7.4-10.4) fl Immature Gran % (Auto) 0.2 (0-0.5) % Neut % (Auto) 59.1 (45.5-73.1) % Lymph % (Auto) 28.3 (18.3-44.2) % Stephens % (Auto) 9.7 H (2.6-8.5) % Eos % (Auto) 2.0 (0-4.4) % Baso % (Auto) 0.7 (0.2-1.2) % Lymph # (Auto) 1.52 (0.9-3.2) K/mm3 Stephens # (Auto) 0.5 (0.1-0.6) K/mm3 Eos # (Auto) 0.1 (0-0.3) K/mm3 Baso # (Auto) 0.0 (0.0-0.1) K/mm3 Abs Immat Gran (auto) 0.01 (0.00-0.031) K/mm3 Absolute Neuts (auto) 3.2 (1.3-6.7) K/mm3 Absolute Nucleated RBC 0.000 (0.0-0.012) K/mm3 Nucleated RBC % 0.0 (0.0-0.2) % D-Dimer 0.24 (<0.48) ug/mL Sodium 139 (137-145) mmol/L Potassium 3.8 (3.4-5.0) mmol/L Chloride 104 (98-107) mmol/L Carbon Dioxide 27 (22-30) mmol/L Anion Gap 8 (4-12) mmol/L BUN 13 (7-17) mg/dL Creatinine 0.67 L (0.7-1.0) mg/dL Estim Creat Clear Calc 111 ml/min Estimated GFR > 60 (59 - ) Glucose 92 (65-110) mg/dL Calcium 8.8 (8.4-10.2) mg/dL Total Bilirubin 0.6 (0.2-1.3) mg/dL AST 21 (14-36) U/L ALT 14 (6-35) U/L Alkaline Phosphatase 56 (38-126) U/L Troponin I < 0.012 (0.000-0.034) ng/mL NT-Pro-B Natriuret Pep 44 (19.9-100) pg/mL Total Protein 7.0 (6.3-8.2) g/dL Albumin 4.1 (3.5-5.1) g/dL Lipase 69 (23-300) U/L POC Urine HCG, Qual Negative (Negative) Influenza A (RT-PCR) Negative (Negative) Influenza B (RT-PCR) Negative (Negative) RSV (RT-PCR) Negative (Negative) SARS-CoV-2 RNA (RT-PCR) Negative (Negative) Discharge Plan Discharge Clinical Impression: Pleurisy Patient Disposition: Home Condition: Stable Instructions: Antibiotic Form, Pleurisy (DC) Additional Instructions: Seen emergency department for chest pain. Please use Motrin and Tylenol as needed for pain. Follow-up with your primary care physician in next 1 week. If you develop severe pain, worsening shortness of breath or any new or worsening symptoms please return to the ED for re-evaluation. Patient Language: Vietnamese Prescriptions: New acetaminophen 500 mg tablet 1,000 mg PO TID PRN (Reason: jerry) 7 Days Qty: 42 0RF ibuprofen 800 mg tablet 800 mg PO TID PRN (Reason: pain) 7 Days Qty: 21 0RF No Action hydrocodone-acetaminophen 5-325 mg tablet 1 tablet PO Q6H PRN (Reason: pain) Qty: 10 0RF Follow-up/Referrals: PHYSICIAN NOT ON STAFF,NONSTAFF [Primary Care Provider] -
[2024-07-05 10:34] VITALS: BP 119/87; PULSE 72; RESP 16
== END 2024-07-05 10:35 | disposition home or self-care (01) ==
PROVIDERS: Emergency Provider Emergency Medicine
DX: R09.1 Pleurisy (principal); Z20.822 Contact with and (suspected) exposure to COVID-19; K21.9 Gastro-esophageal reflux disease without esophagitis
CPT/HCPCS: 36415; 71045; 80053; 81025; 83690; 83880; 84484; 85025; 85380; 87637; 93005; 96361; 96374; 96375; 99284; J1885; J7030

== ENCOUNTER 2024-10-03 17:25 | Emergency (ER) | payer OTHER, SELFPAY ==
--- NOTE | ~2024-10-03 | CT_ITS ---
CT abdomen pelvis wo con Ordering provider: Robin Oconnell APRN History: 29 years Female with . abdominal pain w/ tenderness . Comparison: None. Technique: CT abdomen and pelvis without IV and without oral contrast. Automated exposure control and iterative reconstruction technique were employed. The dose-length product was 467.55 mGy-cm. Findings: VISUALIZED LOWER CHEST: Normal. UPPER ABDOMINAL ORGANS: Liver: Normal. Gallbladder: Status post cholecystectomy. Spleen: Normal. Stomach/duodenum: Postoperative changes in the stomach. Pancreas: Normal. Adrenals: Normal. Kidneys: Normal. PELVIC ORGANS: The bladder is normal. IUD is seen in the uterus. BOWEL AND MESENTERY: Colon: No evidence of diverticulitis. Fluid is seen in the bowel which may indicate diarrhea. Clinica l correlation advised. Appendix is not demonstrated. Small Bowel: Normal. No obstruction. Peritoneum/mesentery: No free air or free fluid. No mesenteric lymphadenopathy. RETROPERITONEUM: Normal aorta. No retroperitoneal lymphadenopathy. MUSCULOSKELETAL: Superficial soft tissues: The superficial soft tissues are normal. Bones: Normal spine. IMPRESSION: 1. No evidence of appendicitis, diverticulitis or intestinal obstruction. 2. Fluid in the large bowel which may indicate diarrhea. Enteritis cannot be excluded. Clinical yen elation advised. Reviewed, dictated and finalized at location A. IMPRESSION: 1. No evidence of appendicitis, diverticulitis or intestinal obstruction. 2. Fluid in the large bowel which may indicate diarrhea. Enteritis cannot be e xcluded. Clinical correlation advised.
--- OUTSIDE RECORDS SUMMARY | 2024-10-03 17:28 | XMS_ITS | Clinical Summary ---
Author Organization [facility] Address [address] [place] [address] Phone Care Team Providers Care Bite Block Maker Name Role Phone Jade Fair OPERATIONAL RISK CONSULTANT Primary Care Provider + Khadijah Rahman DNP Unavailable [phone] Allergies No known active allergies Medications copper (PARAGARD) 380 square mm IUD 9 Active triamcinolone (KENALOG) 0.1 % creamIndications :Polymorphous light eruption Apply topically 2 (two) times a day as needed for rash 454 g 1 3 Active multivitamin capsule Take 1 capsule by mouth daily Active ferrous sulfate ER 324 mg (65 mg iron) EC tabletIndication s:Iron deficiency anemia, unspecified iron deficiency anemia type Take 1 tablet (324 mg total) by mouth daily with breakfast 90 tablet 1 5 Active ondansetron (ZOFRAN) 4 mg tablet Take 1 tablet (4 mg total) by mouth every 8 (eight) hours as needed for nausea 20 tablet 5 Active ALPRAZolam (XANAX) 0.5 mg tabletIndication s:Generalized Anxiety Disorder,sleep Take 1 tablet (0.5 mg total) by mouth 3 (three) times a day as needed for anxiety Takes nightly to sleep and prn for anxiety 90 tablet 5 Active omeprazole (PriLOSEC) 20 mg capsuleIndicatio ns:Treatment of Non-Bleeding Gastric Disorder Take 1 capsule (20 mg total) by mouth as needed (acid reflux) 90 capsule 3 5 09/03/19 26 Active Hospital, Clinic, or Other Facility Administered Medication Ordered Dose Route Frequency Start Date End Date Status copper (PARAGARD) 380 square mm IUD 1 eachIndications:Pre gnancy Contraception 1 each intrauterine Continuous (implanted device) 02/24/2024 4 Active Active Problems Problem Noted Date Diagnosed Date Fatigue 07/08/2024 Assessment & Plan (07/08/2024 11:03 AM CDT): Labs ordered Costal chondritis 07/08/2024 Dizziness 04/01/2024 Assessment & Plan (04/01/2024 1:28 PM PATHOLOGY MANAGER): Dizziness more likely the result of hypotension [...] 03/05/2023 Assessment & Plan (03/05/2023 9:25 AM PATHOLOGY MANAGER): Continue with prilosec for acid reflux. todays [...] ordered Assessment & Plan (03/01/2022 1:56 PM PATHOLOGY MANAGER): Bariatric labs ordered Iron deficiency anemia 11/22/2021 Assessment & Plan (04/01/2024 1:27 PM PATHOLOGY MANAGER): Repeat anemia panel Mild dizziness noted; more likely related to drop in BP as opposed to decreased hemoglobin Assessment & Plan (11/22/2021 10:45 AM CDT): Repeat cbc Hypertriglyceridemia 10/02/2021 Assessment & Plan (07/09/2023 3:20 PM CDT): Lipid panel ordered Assessment & Plan (03/05/2023 9:25 AM PATHOLOGY MANAGER): Repeat labs next visit Assessment & Plan (10/02/2021 2:33 PM CDT): Repeat labs 6 months Idiopathic intracranial hypertension 06/30/2021 Overview (10/16/2021): - 04/2021 seen by commercial banker at [facility], noted to have disc edema OD iso [...] Plan (11/01/2023 9:25 AM CDT): =seen by commercial banker at [facility], noted to have disc edema OD iso [...] time Assessment & Plan (04/02/2022 1:53 PM PATHOLOGY MANAGER): sLIGHT WORSENING OF ANXIETY AND DEPRESSION NOTED. [...] INHIBITOR. Assessment & Plan (02/19/2022 3:11 PM PATHOLOGY MANAGER): Papilledema resolved today, OCT with normal RNFL [...] diamox Assessment & Plan (05/24/2021 3:35 PM PATHOLOGY MANAGER): Follow up with neuro-opthamology Arthritis 05/08/2021 Assessment & Plan (05/08/2021 10:28 AM PATHOLOGY MANAGER): Joint pain that is intermittent, ordered lab work to rule out any kind of autoimmune process. Referral to Neurology. Numbness and tingling in right hand 05/05/2021 Assessment & Plan (05/08/2021 10:28 AM PATHOLOGY MANAGER): Ordered referral to neurology; EMG testing to be performed; lab work as noted Tinnitus, right ear 04/26/2021 Assessment & Plan (05/08/2021 10:27 AM PATHOLOGY MANAGER): I do want her to continue with MRI scan of the brain to rule out any kind of tumor in the ear canal or other forms of tumors in the brain Assessment & Plan (05/01/2021 1:38 PM PATHOLOGY MANAGER): Due to new tinnitus of the right eat along with headache I recommend MRI of the brain to rule out tumors Anxiety 04/04/2021 Assessment & Plan (04/01/2024 1:27 PM PATHOLOGY MANAGER): Stable on current dose of benzo; instructed [...] properties. Assessment & Plan (03/05/2023 9:24 AM PATHOLOGY MANAGER): Stable on current dose of benzo; instructed [...] understanding. Assessment & Plan (04/04/2021 10:57 AM PATHOLOGY MANAGER): Started on xanax short term; up to 3 months for anxiety and depression; instructed on benzo use; SIDE EFFECT of benzos, potential for addiction Major depressive disorder, recurrent, moderate 0 04/03/2021 Assessment & Plan (04/02/2022 1:53 PM PATHOLOGY MANAGER): sLIGHT WORSENING OF ANXIETY AND DEPRESSION NOTED. [...] 11/06/2013 Assessment & Plan (04/01/2024 1:17 PM PATHOLOGY MANAGER): Given samples of [facility] ODT Assessment & Plan (11/01/2023 9:25 AM CDT): Improvement in migraines with weight loss noted. Assessment & Plan (05/08/2021 10:27 AM PATHOLOGY MANAGER): Considered migraines causing issues however patient does [...] 04/01/2024 Assessment & Plan (03/11/2024 9:31 AM PATHOLOGY MANAGER): Patient was given antibiotics instructed to call [...] (04/06/2022): Added automatically from request for surgery [id number] Jaundice 03/01/2022 03/04/2023 Assessment & Plan (03/01/2022 1:56 PM PATHOLOGY MANAGER): CMP ordered to evaluate for bilirubin and liver enzymes Acute non-recurrent frontal sinusitis 01/29/2022 03/04/2023 Assessment & Plan (01/29/2022 1:59 PM PATHOLOGY MANAGER): Presents with acute sinusitis, instructed patient on [...] 11/13/202107/04 Assessment & Plan (04/02/2022 1:52 PM PATHOLOGY MANAGER): SLIGHT WORSENING OF ANXIETY AND DEPRESSION NOTED. [...] 10/02/202102/2023 Assessment & Plan (04/02/2022 1:52 PM PATHOLOGY MANAGER): BMI Follow-up includes: nutrition counseling. Assessment & Plan (03/01/2022 1:56 PM PATHOLOGY MANAGER): BMI Follow-up includes: nutrition counseling. b Assessment [...] rate. Assessment & Plan (05/31/2021 1:05 PM PATHOLOGY MANAGER): Patient presents for weight loss education. Today we discussed getting even more active. We discussed how to optimize health through exercise. adipex ordered; follow up in 1 month Sensory disorder of smell 05/05/2021 Assessment & Plan (05/08/2021 10:27 AM PATHOLOGY MANAGER): Continue with MRI of the brain; referral to neurology New daily persistent headache 04/26/2021 05/05/2021 Assessment & Plan (05/01/2021 1:38 PM PATHOLOGY MANAGER): MRI of the brain ordered; ordered reglan and toradol for suspect acute migraine Major depressive disorder, recurrent, mild 04/03/2021 04/02/2022 Major depressive disorder, r ecurrent, unspecified 04/03/2021 04/02/2022 Assessment & Plan (04/04/2021 10:56 AM PATHOLOGY MANAGER): STARTED ON ZOLOFT 25MG Instructed patient on [...] counseling. Assessment & Plan (05/31/2021 1:05 PM PATHOLOGY MANAGER): BMI Follow-up includes: nutrition counseling. Assessment & Plan (05/24/2021 3:35 PM PATHOLOGY MANAGER): BMI Follow-up includes: nutrition counseling and exercise counseling. Assessment & Plan (05/08/2021 10:25 AM PATHOLOGY MANAGER): BMI Follow-up includes: nutrition counseling. Assessment & Plan (03/28/2021 1:23 PM PATHOLOGY MANAGER): BMI Follow-up includes: nutrition counseling. Dizziness 03/27/2021 05/05/2021 Assessment & Plan (05/01/2021 1:38 PM PATHOLOGY MANAGER): MRI of the brain ordered due to headaches and dizziness Assessment & Plan (04/04/2021 10:57 AM PATHOLOGY MANAGER): Improvement noted with meclizine and analia maneuver; call if worsening of dizziness occurs Assessment & Plan (03/28/2021 1:22 PM PATHOLOGY MANAGER): Likely benign positional vertigo, instructed patient on [...] Encounters Date Type Department Care Team Description 07/27/2024 8:30 AM CDT Office Visit [facility] Ophthalmology [facility] 6th [place] [address] Loly Penaloza MD Idiopathic intracranial hypertension (Primary Dx); Frequent headaches; Visual aura 07/27/2024 8:20 AM CDT Imaging Exam [facility] Ophthalmology [address] [facility] [address] [place] [phone] Idiopathic intracranial hypertension 07/27/2024 8:00 AM CDT Imaging Exam [facility] Ophthalmology [address] [phone] Idiopathic intracranial hypertension 07/20/2024 Telephone [facility] Ophthalmology [address] [place] [address] Loly Penaloza MD Scheduling Appointments 07/14/2024 Orders Only [facility] Primary Care at [address] [phone] Jade Fair NP Fatigue, unspecified type (Primary Dx) 07/13/2024 Orders Only [facility] Primary Care at [address] [address] Jade Fair NP 07/09/2024 5:13 PM CDT - 07/09/2024 11:59 PM CDT Hospital Encounter [address] [phone] Discharge Disposition: Discharge to home or self care 07/09/2024 4:15 PM CDT Lab [facility] Primary Care at [address] [phone] Fatigue, unspecified type 07/08/2024 10:30 AM CDT Telemedicine [facility] Primary Care at [address] [address] Jade Fair NP Fatigue, unspecified type (Primary Dx); Costal chondritis; Iron deficiency anemia, unspecified iron deficiency anemia type 07/06/2024 Orders Only [facility] Medical [facility] Primary Care at [address] [phone] Jade Fair NP from Last 3 Months Immunizations Immunization Administration [...] you have a drink containing alc ohol? 2-4 times a month 07/27/2024 Average Number of Drinks Not on file 025 Frequency of Binge Drinking Not on file 07/2024 PHQ-2 Answer Date Recorded PHQ-2 Total Score (If total score is 3 or more points, staff should administer the PHQ-9) 2 06/28/2023 Comments No Sex and Gender Information Value Date Recorded Sex Assigned at Not on file Legal Sex Female 10:52 AM PATHOLOGY MANAGER Gender Identity Not on file Sexual Orientation [...] Comments Blood Pressure 126/80 04/01/2024 12:55 PM PATHOLOGY MANAGER Pulse 85 04/01/2024 12:55 PM PATHOLOGY MANAGER Temperature 37 C (98.6 F) 03/11/2024 8:27 AM PATHOLOGY MANAGER Respiratory Rate 14 08/17/2022 8:10 AM CDT Oxygen Saturation 98% 04/01/2024 12:55 PM PATHOLOGY MANAGER Inhaled Oxygen Concentration - - Weight 79.4 kg (175 lb) 04/01/2024 12:55 PM PATHOLOGY MANAGER Height 165.1 cm (5' 5) 04/01/2024 12:55 PM PATHOLOGY MANAGER Body Mass Index 29.12 04/01/2024 12:55 PM PATHOLOGY MANAGER Plan of Treatment Health Maintenance Due Date Last Done Comments Varicella Vaccines (1 of 2 - 13+ 2-dose series) 05/09/2007 HPV Vaccines (2 - 2-dose series) 10/10/2007 04/11/2007 DTaP/Tdap/Td Vaccine (7 - Td or Tdap) 07/29/2018 07/29/2008, 05/30/1998, 05/30/1998, Additional history exists Covid-19 Vaccine (2023- season) 2023 11/04/2020, 10/07/2020 Cervical Cancer Screening [...] Procedure Name Priority Date/Time Associated Diagnosis Comments TILLEY VISUAL FIELD - OU - BOTH EYES Routine 07/27/2024 8:02 AM CDT Idiopathic intracranial hypertension OCT, RETINA - OU - BOTH EYES Routine 07/27/2024 8:02 AM CDT Idiopathic intracranial hypertension OCT, OPTIC NERVE - OU - BOTH EYES Routine 07/27/2024 8:02 AM CDT Idiopathic intracranial hypertension DIFFERENTIAL AUTO Routine 07/09/2024 4:3 5 PM CDT Fatigue, unspecified type VITAMIN D 25 HYDROXY Routine 07/09/2024 4:35 PM CDT Fatigue, unspecified type VITAMIN B12 Routine 07/09/2024 4:35 PM CDT Fatigue, unspecified type CBC WITH AUTO DIFFERENTIAL Routine 07/09/2024 4:35 PM CDT Fatigue, unspecified type THYROID FUNCTION CASCADE Routine 07/09/2024 4:35 PM CDT Fatigue, unspecified type HEPATITIS C ANTIBODY Routine 12/13/2023 3:15 PM CDT Routine screening for STI (sexually transmitted infection) PAP WITH REFLEX TO HIGH RISK HPV Routine 12/07/2022 3:23 PM CDT Encounter for well woman exam with abnormal findings from Last 3 Months or Most Recently Relevant to Health Maintenance Results * Tilley Visual Field - OU - Both Eyes (07/27/2024 8:02 AM CDT) Anatomical Region Laterality Modality Head Other Narrative 07/27/2024 8:27 AM CDT Right Eye Fixation was good. Cooperation was good. Reliability was good. Left Eye Fixation was good. Cooperation was good. Reliability was good. Notes Full OU us Loly Penaloza MD OPH VISUAL FIELD Final Re sult * OCT, Retina - OU - Both Eyes (07/27/2024 8:02 AM CDT) Anatomical Region Laterality Modality Head Other Narrative 07/27/2024 8:27 AM CDT Right Eye Quality was good. Findings include normal observations. Left Eye Quality was good. Findings include normal observations. Notes Normal mean ganglion cell complex thickness OU (on [employer] OCT) us Loly Penaloza MD OPHTH TOMOGRAPHY Final Resu lt * OCT, Optic Nerve - OU - Both Eyes (07/27/2024 8:02 AM CDT) RNFL OS 90 micrometers CONTINUUM RNFL OD 99 micrometers CONTINUUM Anatomical Region Laterality Modality Head Other Narrative 07/27/2024 8:27 AM CDT Right Eye Reliability was good. Average RNFL thickness 99 micrometers. Left Eye Reliability was good. Average RNFL thickness 90 micrometers. Notes Stable, normal mean RNFL thickness OU (Performed on [employer] Cirrus OCT) us Loly Penaloza MD OPHTH TOMOGRAPHY Final Resu lt * Differential, auto (07/09/2024 4:35 PM CDT) Neutrophil abs 4.01 1.50 - 6.50 K/cumm Imm gran abs 0.02 0.00 - 0.10 K/cumm [facility] Lymphocyte abs 2.33 0.80 - 3.30 K/cumm [facility] Monocyte abs 0.59 0.20 - 0.80 K/cumm [facility] Eosinophil abs 0.10 0.00 - 0.50 K/cumm [facility] Basophil abs 0.04 0.00 - 0.10 K/cumm [facility] Neutrophil pct 56.5 % [facility] Comment: Interpretive Data Percent cell count reference ranges are not reported, since discordance with absolute values may lead to misinterpretation of CBC data. Current Interpretive Data was last revised on 2017. Imm gran pct 0.3 % [facility] Comment: Interpretive Data Percent cell count reference ranges are not reported, since discordance with absolute values may lead to misinterpretation of CBC data. Current Interpretive Data was last revised on 2017. Lymphocyte pct 32.9 % [facility] Comment: Interpretive Data Percent cell count reference ranges are not reported, since discordance with absolute values may lead to misinterpretation of CBC data. Current Interpretive Data was last revised on 2017. Monocyte pct 8.3 % [facility] Comment: Interpretive Data Percent cell count reference ranges are not reported, since discordance with absolute values may lead to misinterpretation of CBC data. Current Interpretive Data was last revised on 2017. Eosinophil pct 1.4 % [facility] Comment: Interpretive Data Percent cell count reference ranges are not reported, since discordance with absolute values may lead to misinterpretation of CBC data. Current Interpretive Data was last revised on 2017. Basophil pct 0.6 % [facility] Comment: Interpretive Data Percent cell count reference ranges are not reported, since discordance with absolute values may lead to misinterpretation of CBC data. Current Interpretive Data was last revised on 2017. Blood 07/09/2024 4:35 PM CDT 07/09/2024 7:57 PM CDT Jade Sima Fair NP LAB BLOOD ORDERABLES Fin al Result Performing Organization Address City/[facility]/ZIP Co de Phone Number [facility] [address] [place] [address] * Thyroid Function [place] (07/09/2024 4:35 PM CDT) Pathologist [facility] TSH 1.55 0.30 - 4.20 mcIUnit/mL Blood 07/09/2024 4:35 PM CDT 07/09/2024 8:21 PM CDT Jade Fair NP LAB BLOOD ORDERABLES Fin al Result Performing Organization Address [facility] Co de Phone Number [facility] [address] [place] [address] * CBC with auto differential (07/09/2024 4:35 PM CDT) Pathologist [facility] WBC 7.09 3.80 - 9.90 K/cumm Hgb 13.3 11.9 - 15.5 g/dL [facility] Hct 40.2 35.6 - 45.5 % [facility] Plt 340 150 - 400 K/cumm [facility] MPV 10.7 9.1 - 12.3 fL [facility] RBC 4.32 3.90 - 5.20 M/cumm [facility] MCV 93.1 81.3 - 96.4 fL [facility] MCH 30.8 27.1 - 33.3 pg [facility] MCHC 33.1 32.3 - 35.7 g/dL [facility] RDW CV 12.0 11.1 - 14.9 % [facility] RDW SD 41.0 35.7 - 48.1 fL [facility] NRBC abs 0.00 0.00 - 0.01 K/cumm [facility] Blood 07/09/2024 4:35 PM CDT 07/09/2024 7:57 PM CDT Jade Fair NP LAB BLOOD ORDERABLES Fin al Result Performing Organization Address City/[facility] Co de Phone Number [facility] [address] [facility] [place] [address] * Vitamin D 25 hydroxy (07/09/2024 4:35 PM CDT) [facility] Vitamin D 25-OH 34 30 - 80 ng/mL Blood 07/09/2024 4:35 PM CDT 07/09/2024 8:21 PM CDT Jade Fair NP LAB BLOOD ORDERABLES Fin al Result Performing Organization Address [facility] Co de Phone Number [facility] [address] [place] [address] * Vitamin B12 (07/09/2024 4:35 PM CDT) [facility] Vitamin B12 753 230 - 1,250 pg/mL Blood 07/09/2024 4:35 PM CDT 07/09/2024 8:21 PM CDT Jade Fair NP LAB BLOOD ORDERABLES Fin al Result Performing Organization Address City/[facility] Co de Phone Number [facility] [address] [facility] [place] [address] * Hepatitis C antibody Blood (12/13/2023 3:15 PM CDT) [facility] Hep C Ab Nonreactive Nonreactive Comment: Interpretive [...] CDT 12/13/2023 6:19 PM CDT Paula Wilson [facility] LAB MICROBIOLOGY - GENERA L ORDERABLES Final Result [facility] [address] Department [place] [address] * Pap with reflex to High Risk HPV and Genotyping (Cytology Component) (12/07/2022 3:23 PM CDT) Thin prep (Pap test) 12/07/2022 3:23 PM CDT 12/11/2022 11:07 AM CDT Narrative PATHOLOGY [facility] - 12/17/2022 1:00 PM CDT EPIC results best viewed via link to PDF [place] [id number] [place], [place] [address] Tele: Vijaya Lopez MD - Sprinkler Driver CYTOLOGY REPORT Note to Patients: This report [...] the details. Patient Name: RUTH PANDA [address]: [address] [place] [id number] Gender: F : 1995 (Age: 27) Service: Location: [facility] #: [id number] Patient Type: [facility] SPECIMEN Taken: 12/07/2022 Reported: 12/17/2022 Physician(s): Paula Wilson CNM FINAL DIAGNOSIS: SOURCE OF SPECIMEN - ThinPrep Pap w/ reflex HPV: STATEMENT OF ADEQUACY Source: Cervical/Endocervical - Satisfactory for interpretation - Endocervical /Transformation Zone component present - Case screened using computer assisted imaging technology and manually re- screened by a fermentologist. GENERAL CATEGORIZATION: - Negative for intraepithelial lesion or malignancy INTERPRETATION: Due to scant cellularity, the specimen was reprocessed and a second slide was made for evaluation. cad/12/17/2022 13:00Hue Hernandez M.S., ERIC (ASCP) Report Reviewed [...] recommended by your physician or nurse practitioner. Paula Wilson CNM LAB CYTOLOGY ORDERABLES F inal Result PATHOLOGY [facility] Laboratory Receiving [address] [place] [address] from Last 3 Months or Most Recently Relevant to Health Maintenance Insurance [facility] Advance Directives For more information, please contact: [phone] Documents on File Type Date Recorded Patient Drawing Box Tender Expl anation ADVANCE DIRECTIVE 08/02/2022 Care Teams Bite Block Maker Relationship Specialty Start Date End Date Jade Fair NP [address] [address] PCP - General Family Medicine 05/01/21 Khadijah Rahman DNP [facility], [place] [address] Nurse Practitioner Sleep Medicine 07/27/24
--- OUTSIDE RECORDS SUMMARY | 2024-10-03 17:28 | XMS_ITS | Encounter Summary ---
Author Organization [facility] Address [address] [place] [address] Care Team Providers Care Thrasher Feeder Name Role Phone Unavailable Primary Care Provider Unavailabl e Reason for Visit * Reason Onset Date Comments Other 11/25/2015 Encounter Details Date Type Department Care Team (Late st Contact Info) Description 11/25/2015 Telephone [facility] Program [address] [place] [address] Frida Santiago MD [address] [facility]. [facility] [address] [place] [address] Other Social History Tobacco Use Types Packs/Day [...]
--- OUTSIDE RECORDS SUMMARY | 2024-10-03 17:28 | XMS_ITS | Referral Summary ---
Author Organization [facility] Address [address] [place] [address] Phone Care Team Providers Care Military Aircraft Designer Name Role Phone Jade Fair NP Primary Care Provider + Khadijah Rahman DNP Unavailable [phone] Encounters Date Type Department Care Team Description 07/27/2024 8:30 AM CDT Office Visit [facility] [address] [place] [address] [phone] Loly Penaloza MD Idiopathic intracranial hypertension (Primary Dx); Frequent headaches; Visual aura 07/27/2024 8:20 AM CDT Imaging Exam [facility] [address] [place] [address] [phone] Idiopathic intracranial hypertension 07/27/2024 8:00 AM CDT Imaging Exam [facility] Ophthalmology [address] [facility] [address] [phone] Idiopathic intracranial hypertension 07/20/2024 Telephone [facility] Ophthalmology [facility] [place] [address] Loly Penaloza MD Scheduling Appointments 07/14/2024 Orders Only [facility] Primary Care at [address] [address] Jade Fair NP Fatigue, unspecified type (Primary Dx) 07/13/2024 Orders Only [facility] Primary Care at [address] [address] Jade Fair NP 07/09/2024 5:13 PM CDT - 07/09/2024 11:59 PM CDT Hospital Encounter [facility] [address] [place] [address] Discharge Disposition: Discharge to home or self care 07/09/2024 4:15 PM CDT Lab [facility] Primary Care at [address] [address] Fatigue, unspecified type 07/08/2024 10:30 AM CDT Telemedicine [facility] Primary Care at [address] [address] Jade Fair NP Fatigue, unspecified type (Primary Dx); Costal chondritis; Iron deficiency anemia, unspecified iron deficiency anemia type 07/06/2024 Orders Only [facility] Primary Care at [address] [address] Jade Fair NP from Last 3 Months Allergies No known [...] 04/01/2024 Assessment & Plan (04/01/2024 1:28 PM SITE SAFETY REPRESENTATIVE): Dizziness more likely the result of hypotension [...] 03/05/2023 Assessment & Plan (03/05/2023 9:25 AM SITE SAFETY REPRESENTATIVE): Continue with prilosec for acid reflux. todays [...] ordered Assessment & Plan (03/01/2022 1:56 PM SITE SAFETY REPRESENTATIVE): Bariatric labs ordered Iron deficiency anemia 11/22/2021 Assessment & Plan (04/01/2024 1:27 PM SITE SAFETY REPRESENTATIVE): Repeat anemia panel Mild dizziness noted; more likely related to drop in BP as opposed to decreased hemoglobin Assessment & Plan (11/22/2021 10:45 AM CDT): Repeat cbc Hypertriglyceridemia 10/02/2021 Assessment & Plan (07/09/2023 3:20 PM CDT): Lipid panel ordered Assessment & Plan (03/05/2023 9:25 AM SITE SAFETY REPRESENTATIVE): Repeat labs next visit Assessment & Plan (10/02/2021 2:33 PM CDT): Repeat labs 6 months Idiopathic intracranial hypertension 06/30/2021 Overview (10/16/2021): - 04/2021 seen by greenhouse superintendent at [facility], noted to have disc [...] Plan (11/01/2023 9:25 AM CDT): =seen by greenhouse superintendent at [facility], noted to have disc [...] time Assessment & Plan (04/02/2022 1:53 PM SITE SAFETY REPRESENTATIVE): sLIGHT WORSENING OF ANXIETY AND DEPRESSION NOTED. [...] INHIBITOR. Assessment & Plan (02/19/2022 3:11 PM SITE SAFETY REPRESENTATIVE): Papilledema resolved today, OCT with normal RNFL [...] diamox Assessment & Plan (05/24/2021 3:35 PM SITE SAFETY REPRESENTATIVE): Follow up with neuro-opthamology Arthritis 05/08/2021 Assessment & Plan (05/08/2021 10:28 AM SITE SAFETY REPRESENTATIVE): Joint pain that is intermittent, ordered lab work to rule out any kind of autoimmune process. Referral to Neurology. Numbness and tingling in right hand 05/05/2021 Assessment & Plan (05/08/2021 10:28 AM SITE SAFETY REPRESENTATIVE): Ordered referral to neurology; EMG testing to be performed; lab work as noted Tinnitus, right ear 04/26/2021 Assessment & Plan (05/08/2021 10:27 AM SITE SAFETY REPRESENTATIVE): I do want her to continue with MRI scan of the brain to rule out any kind of tumor in the ear canal or other forms of tumors in the brain Assessment & Plan (05/01/2021 1:38 PM SITE SAFETY REPRESENTATIVE): Due to new tinnitus of the right eat along with headache I recommend MRI of the brain to rule out tumors Anxiety 04/04/2021 Assessment & Plan (04/01/2024 1:27 PM SITE SAFETY REPRESENTATIVE): Stable on current dose of benzo; instructed [...] properties. Assessment & Plan (03/05/2023 9:24 AM SITE SAFETY REPRESENTATIVE): Stable on current dose of benzo; instructed [...] understanding. Assessment & Plan (04/04/2021 10:57 AM SITE SAFETY REPRESENTATIVE): Started on xanax short term; up to 3 months for anxiety and depression; instructed on benzo use; SIDE EFFECT of benzos, potential for addiction Major depressive disorder, recurrent, moderate 0 04/03/2021 Assessment & Plan (04/02/2022 1:53 PM SITE SAFETY REPRESENTATIVE): sLIGHT WORSENING OF ANXIETY AND DEPRESSION NOTED. [...] 11/06/2013 Assessment & Plan (04/01/2024 1:17 PM SITE SAFETY REPRESENTATIVE): Given samples of [facility] ODT Assessment & Plan (11/01/2023 9:25 AM CDT): Improvement in migraines with weight loss noted. Assessment & Plan (05/08/2021 10:27 AM SITE SAFETY REPRESENTATIVE): Considered migraines causing issues however patient does [...] 04/01/2024 Assessment & Plan (03/11/2024 9:31 AM SITE SAFETY REPRESENTATIVE): Patient was given antibiotics instructed to call [...] (04/06/2022): Added automatically from request for surgery [id number] Jaundice 03/01/2022 03/04/2023 Assessment & Plan (03/01/2022 1:56 PM SITE SAFETY REPRESENTATIVE): CMP ordered to evaluate for bilirubin and liver enzymes Acute non-recurrent frontal sinusitis 01/29/2022 03/04/2023 Assessment & Plan (01/29/2022 1:59 PM SITE SAFETY REPRESENTATIVE): Presents with acute sinusitis, instructed patient on [...] 11/13/202107/04 Assessment & Plan (04/02/2022 1:52 PM SITE SAFETY REPRESENTATIVE): SLIGHT WORSENING OF ANXIETY AND DEPRESSION NOTED. [...] 10/02/202102/2023 Assessment & Plan (04/02/2022 1:52 PM SITE SAFETY REPRESENTATIVE): BMI Follow-up includes: nutrition counseling. Assessment & Plan (03/01/2022 1:56 PM SITE SAFETY REPRESENTATIVE): BMI Follow-up includes: nutrition counseling. b Assessment [...] rate. Assessment & Plan (05/31/2021 1:05 PM SITE SAFETY REPRESENTATIVE): Patient presents for weight loss education. Today we discussed getting even more active. We discussed how to optimize health through exercise. adipex ordered; follow up in 1 month Sensory disorder of smell 05/05/2021 Assessment & Plan (05/08/2021 10:27 AM SITE SAFETY REPRESENTATIVE): Continue with MRI of the brain; referral to neurology New daily persistent headache 04/26/2021 05/05/2021 Assessment & Plan (05/01/2021 1:38 PM SITE SAFETY REPRESENTATIVE): MRI of the brain ordered; ordered reglan and toradol for suspect acute migraine Major depressive disorder, recurrent, mild 04/03/2021 04/02/2022 Major depressive disorder, r ecurrent, unspecified 04/03/2021 04/02/2022 Assessment & Plan (04/04/2021 10:56 AM SITE SAFETY REPRESENTATIVE): STARTED ON ZOLOFT 25MG Instructed patient on [...] counseling. Assessment & Plan (05/31/2021 1:05 PM SITE SAFETY REPRESENTATIVE): BMI Follow-up includes: nutrition counseling. Assessment & Plan (05/24/2021 3:35 PM SITE SAFETY REPRESENTATIVE): BMI Follow-up includes: nutrition counseling and exercise counseling. Assessment & Plan (05/08/2021 10:25 AM SITE SAFETY REPRESENTATIVE): BMI Follow-up includes: nutrition counseling. Assessment & Plan (03/28/2021 1:23 PM SITE SAFETY REPRESENTATIVE): BMI Follow-up includes: nutrition counseling. Dizziness 03/27/2021 05/05/2021 Assessment & Plan (05/01/2021 1:38 PM SITE SAFETY REPRESENTATIVE): MRI of the brain ordered due to headaches and dizziness Assessment & Plan (04/04/2021 10:57 AM SITE SAFETY REPRESENTATIVE): Improvement noted with meclizine and analia maneuver; call if worsening of dizziness occurs Assessment & Plan (03/28/2021 1:22 PM SITE SAFETY REPRESENTATIVE): Likely benign positional vertigo, instructed patient on [...] Frequency of Binge Drinking Not on file 050 07/2024 PHQ-2 Answer Date Recorded PHQ-2 Total Score (If total score is 3 or more points, staff should administer the PHQ-9) 2 06/28/2023 Comments No Sex and Gender Information Value Date Recorded Sex Assigned at Not on file Legal Sex Female 10:52 AM SITE SAFETY REPRESENTATIVE Gender Identity Not on file Sexual Orientation Not on file Last Filed Vital Signs Vital Sign Reading Time Taken Comments Blood Pressure 126/80 04/01/2024 12:55 PM SITE SAFETY REPRESENTATIVE Pulse 85 04/01/2024 12:55 PM SITE SAFETY REPRESENTATIVE Temperature 37 C (98.6 F) 03/11/2024 8:27 AM SITE SAFETY REPRESENTATIVE Respiratory Rate 14 08/17/2022 8:10 AM CDT Oxygen Saturation 98% 04/01/2024 12:55 PM SITE SAFETY REPRESENTATIVE Inhaled Oxygen Concentration - - Weight 79.4 kg (175 lb) 04/01/2024 12:55 PM SITE SAFETY REPRESENTATIVE Height 165.1 cm (5' 5) 04/01/2024 12:55 PM SITE SAFETY REPRESENTATIVE Body Mass Index 29.12 04/01/2024 12:55 PM SITE SAFETY REPRESENTATIVE Plan of Treatment Not on file Procedures [...] gran abs 0.02 0.00 - 0.10 K/cumm [facility] Lymphocyte abs 2.33 0.80 - 3.30 K/cumm [facility] Monocyte abs 0.59 0.20 - 0.80 K/cumm [facility] Eosinophil abs 0.10 0.00 - 0.50 K/cumm [facility] Basophil abs 0.04 0.00 - 0.10 K/cumm [facility] Neutrophil pct 56.5 % [facility] Comment: Interpretive Data Percent cell count reference ranges are not reported, since discordance with absolute values may lead to misinterpretation of CBC data. Current Interpretive Data was last revised on 2017. Imm gran pct 0.3 % [facility] Comment: Interpretive Data Percent cell count reference ranges are not reported, since discordance with absolute values may lead to misinterpretation of CBC data. Current Interpretive Data was last revised on 2017. Lymphocyte pct 32.9 % [facility] Comment: Interpretive Data Percent cell count reference ranges are not reported, since discordance with absolute values may lead to misinterpretation of CBC data. Current Interpretive Data was last revised on 2017. Monocyte pct 8.3 % [facility] Comment: Interpretive Data Percent cell count reference ranges are not reported, since discordance with absolute values may lead to misinterpretation of CBC data. Current Interpretive Data was last revised on 2017. Eosinophil pct 1.4 % [facility] Comment: Interpretive Data Percent cell count reference ranges are not reported, since discordance with absolute values may lead to misinterpretation of CBC data. Current Interpretive Data was last revised on 2017. Basophil pct 0.6 % [facility] Comment: Interpretive Data Percent cell count reference ranges are not reported, since discordance with absolute values may lead to misinterpretation of CBC data. Current Interpretive Data was last revised on 2017. Blood 07/09/2024 4:35 PM CDT 07/09/2024 7:57 PM CDT Jade Fair NP LAB BLOOD ORDERABLES Fin al Result Performing Organization Address [facility] Co de Phone Number [facility] [address] [facility] [place] [address] * Thyroid Function [place] (07/09/2024 4:35 PM CDT) Pathologist [facility] TSH 1.55 0.30 - 4.20 mcIUnit/mL Blood 07/09/2024 4:35 PM CDT 07/09/2024 8:21 PM CDT Jade Fair NP LAB BLOOD ORDERABLES Fin al Result Performing Organization Address [facility] de Phone Number [facility] [address] [facility] [place] [address] * CBC with auto differential (07/09/2024 4:35 PM CDT) Pathologist [facility] WBC 7.09 3.80 - 9.90 K/cumm Hgb 13.3 11.9 - 15.5 g/dL [facility] Hct 40.2 35.6 - 45.5 % [facility] Plt 340 150 - 400 K/cumm [facility] MPV 10.7 9.1 - 12.[address] [facility] RBC 4.32 3.90 - 5.20 M/cumm [facility] MCV 93.1 81.3 - 96.[address] [facility] MCH 30.8 27.1 - 33.[address] [facility] MCHC 33.1 32.3 - 35.7 g/dL [facility] RDW CV 12.0 11.1 - 14.9 % [facility] RDW SD 41.0 35.7 - 48.[address] [facility] NRBC abs 0.00 0.00 - 0.01 K/cumm [facility] Blood 07/09/2024 4:35 PM CDT 07/09/2024 7:57 PM CDT Jade Fair NP LAB BLOOD ORDERABLES Fin al Result Performing Organization Address [facility] de Phone Number [facility] [address] [place] [address] * Vitamin D 25 hydroxy (07/09/2024 4:35 PM CDT) [facility] Vitamin D 25-OH 34 30 - 80 ng/mL Blood 07/09/2024 4:35 PM CDT 07/09/2024 8:21 PM CDT Jade Fair NP LAB BLOOD ORDERABLES Fin al Result Performing Organization Address [facility] de Phone Number [facility] [address] [place] [address] * Vitamin B12 (07/09/2024 4:35 PM CDT) [facility] Vitamin B12 753 230 - 1,250 pg/mL Blood 07/09/2024 4:35 PM CDT 07/09/2024 8:21 PM CDT Jade Fair NP LAB BLOOD ORDERABLES Fin al Result Performing Organization Address [facility] de Phone Number [facility] [address] [facility] [place] [address] * Hepatitis C antibody Blood (12/13/2023 3:15 PM CDT) [facility] Hep C Ab Nonreactive Nonreactive Comment: Interpretive [...] 3:15 PM CDT 12/13/2023 6:19 PM CDT us Paula Wilson CNM LAB MICROBIOLOGY - GENERA L ORDERABLES Final Result [place] [id number] [facility] [place] [address] * Pap with reflex to High Risk HPV and Genotyping (Cytology Component) (12/07/2022 3:23 PM CDT) Thin prep (Pap test) 12/07/2022 3:23 PM CDT 12/11/2022 11:07 AM CDT Narrative PATHOLOGY [facility] - 12/17/2022 1:00 PM CDT EPIC results best viewed via link to PDF [place] [address] [place], [place] [address] Tele: Vijaya Lopez MD - Search Strategist CYTOLOGY REPORT Note to Patients: This report [...] the details. Patient Name: RUTH PANDA Address: [address] [place] [id number] Gender: F : 1995 (Age: 27) Service: Location: [facility] #: [id number] Patient Type: [facility] SPECIMEN Taken: 12/07/2022 Reported: 12/17/2022 Physician(s): Paula Wilson CNM FINAL DIAGNOSIS: SOURCE OF SPECIMEN - ThinPrep Pap w/ reflex HPV: STATEMENT OF ADEQUACY Source: Cervical/Endocervical - Satisfactory for interpretation - Endocervical /Transformation Zone component present - Case screened using computer assisted imaging technology and manually re- screened by a hot car operator. GENERAL CATEGORIZATION: - Negative for intraepithelial lesion or malignancy INTERPRETATION: Due to scant cellularity, the specimen was reprocessed and a second slide was made for evaluation. 12/17/2022 13:00Hue Hernandez M.S., ERIC (ASCP) Report Reviewed [...] LAB CYTOLOGY ORDERABLES F inal Result PATHOLOGY [facility] Laboratory Receiving [address] [place] [address] from Last 3 Months or Most Recently Relevant to Health Maintenance Insurance [facility] CHOICE PLUS [facility] HMO/PPO Address: [address] [place] [address] [facility] CHOICE PLUS [facility] HMO/PPO Address: [address] [place] [address] [facility] CHOICE PLUS [facility] HMO/PPO Address: [address] [place] [address] Advance Directives For more information, please contact: [phone] Documents on File Type Date Recorded Patient Mobile Phlebotomist Expl anation ADVANCE DIRECTIVE 08/02/2022 Care Teams Military Aircraft Designer Relationship Specialty Start Date End Date Jade Fair NP [address] [address] PCP - General Family Medicine 05/01/21 Khadijah Rahman DNP [address] [facility] [address] [place] [address] Nurse Practitioner Sleep Medicine 07/27/24
--- OUTSIDE RECORDS SUMMARY | 2024-10-03 17:28 | XMS_ITS | Continuity of Care Document ---
Author Organization [facility] Address [address] [place] [address] [address] [place] [address] Phone Care Team Providers Care Stitchdowns Toe Former Name Role Phone Virgilio FRANKEL MD, Marline Unavailable Unavailable Procedures Procedure Date GDX Optic Nerve GDX Optic Nerve Results Test Name Date and Time Measure Units Reference Range Abnormal Flag Status Commen ts Panel Description: [id number] Final Image Zeiss Result 1 Advance Directives Directive Yes / No Effective Date File Name No Information Encounters Encounter Description Practice Location Reason(s) For Visit Diagnoses Date Provider Providers Copied on Encounter [facility], [address] [place] [address], [id number], tel:[phone] OPH CONSULT FABRIZIO HODGES No Information 2 Virgilio Horan. [address] [place] [address], [place], [id number], [place]. tel:[phone] Referring Provider: Sabra Smith MD, [address] [place] [address], [place], [address]. tel:[phone] [facility], [address] [place] [address], [id number], [place] tel:[phone] OPH CONSULT FABRIZIO HODGES No Information 2 Virgilio Horan. [address] [place] [address], [id number], [place]. tel:[phone] Referring Provider: Sabra Smith MD, [address] [place] [address], [place], [address]. tel:[phone] Family History Family Member Type Diagnosis Age At Onset No Information Payers Payer name Insurance type Covered constitution party ID Lalit mcqueen(s) Claudy [id number] Social History Type Description Quantity Date Captured [...]
--- OUTSIDE RECORDS SUMMARY | 2024-10-03 17:28 | XMS_ITS | Clinical Summary ---
Author Organization [facility] Address [address] [facility] [place] [address] Care Team Providers Care Geriatric Personal Care Aide Name Role Phone Jade Fair HEDIS MANAGER-STRAW HAT WASHER OPERATOR Primary Care Provider + Source Comments [facility],non-owned Affiliates and Associated Physician Practices is amultiple site organization consisting of ambulatory clinics and hospital sitesin [place], [place]. This disclosure is being madepursuant to the Care Everywhere program and may not contain all information available regarding this patient. Last updated 17.So [employer] [facility] Allergies No known active allergies Medications * [...] (FLONASE SENSIMIST/VERAMY ST) 27.5 MCG/SPRAY nasal spray [place] 1 Inhaler into each nostril 2 times [...] over weekend) - CALL PATIENT DIRECTLY AT [phone] IF CALLING WITH RESULTS. Contraceptive management 10/10/2009 [...] on file Legal Sex Female 5:36 AM DEALER COMPLIANCE REPRESENTATIVE Gender Identity Not on file Sexual [...] 11:00 AM CDT Height 167.6 cm (5' 6) 07/24/2023 11:00 AM CDT Body Mass Index 26.15 07/24/2023 11:00 AM CDT Plan of Treatment Health Maintenance Due Date Last Done Comments HEPATITIS C SCREENING 06/22/2011 DTAP/TDAP/TD VACCINES (7 - Td or Tdap) 07/29/2018 07/29/2008, 05/30/1998, 12/14/1996, Additional history exists HPV VACCINE (1 - 3-dose SCDM series) 2020 COVID-19 VACCINE ( season) 2023 11/04/2020, 10/07/2020 DEPRESSION SCREENING 03/25/2024 INFLUENZA VACCINE (#1) 2024 04/11/2007 PAP SMEAR 12/07/2025 12/07/2022, 08/09/2021 ZOSTER VACCINE (1 of 2) 06/27/2043 HIB VACCINE Completed 12/14/1996, 05/1993, 1993, Additional history exists HEPATITIS B VACCINE Completed 05/30/1998, 12/27/1997, 11/26/1997 MENINGOCOCCAL GROUPS A/C/Y/W VACCINE Completed 08/31/2010, 04/11/2007 HIV SCREENING Completed 08/09/2021, 08/23, 10/10/2009 MENINGOCOCCAL (Group B) VACCINE SHARED DECISION-MAKING Aged [...] CDT) Case Report Gynecologic Cytology Report Case: [id number] Authorizing Provider: Tristen Loza MD Collected: 08/09/2021 03:15 PM Ordering Location: [facility] Obstetrics Received: 08/10/2021 12:29 PM Gynecology and [...] 3:15 PM CDT [facility] Interpretation SENIOR TECHNICAL EDITOR Negative for Intraepithelial lesion or malignancy. Reactive cellular changes present. 08/15/2021 3:15 PM CDT [facility] at 1514 CDT Other Inflammation present. 08/15/2021 3:15 PM CDT [facility] Pap Footnote The Pap Smear is a screening test. False positive and false negative results occur. Negative results do not preclude abnormalities, thus clinical correlation is required. This specimen was evaluated by the [employer] System along with an additional manual rescreening by a hydro station operator and/or pathologist. 08/15/2021 3:15 PM CDT [facility] PATH[facility] LAB Embedded Images 3:15 PM CDT [facility] LAB Pathology/Cytolo gy MISCELLANEOUS SAMPLES / Unknown 08/09/2021 3:15 PM CDT 08/10/2021 12:29 PM CDT Tristen Loza MD LAB - PATHOLOGY/CYTOLOGY ORDER TRA Final Result [facility] PATHOLOGY LAB [address] [facility] [place] [address], [facility] [phone] * HIV-1 HIV-2 ANTIBODY + HIV P24 [...] purpose. For additional information please refer to http://education.[employer].Slyce/faq/KLF254 (This link is being provided for informational/ educational purposes only.) The performance of this assay has not been clinically validated in patients less than 2 years old. Test Performed at: [facility] [address] [place] [address] TWYLA FAIR DO,MPH Blood BLOOD SPECIMEN / Unknown 08/09/2021 08/09/2021 2:58 PM CDT Tristen Loza MD LAB - CHEMISTRY ORDERABLES Fin al Result [facility] [id number] [place] [address] from Last 3 Months or Most Recently Relevant to Health Maintenance Insurance [facility] MEDICAID - [facility] AETNA Care Teams Geriatric Personal Care Aide Relationship Specialty Start Date End Date Jade Fair, HEDIS MANAGER-STRAW HAT WASHER OPERATOR [address] [place] [address] PCP - General Nurse Practitioner Family 11/27/21
--- OUTSIDE RECORDS SUMMARY | 2024-10-03 17:28 | XMS_ITS | Clinical Summary ---
Author Organization [facility] Address [address] [place] [address] Phone Care Team Providers Care Train Master Name Role Phone Unavailable Primary Care Provider [...] 5:03 AM CDT Height 165.1 cm (5' 5) 11/13/2021 4:47 PM CDT Body Mass Index 39.87 11/13/2021 4:47 PM CDT Plan of Treatment Health Maintenance Due Date Last Done Comments HPV VACCINES (2 - 2-dose series) 10/10/2007 04/11/19 08 HPV/Cotest (21-29) 2014 DTAP/TDAP/TD VACCINES (7 - T d or Tdap) 07/29/2018 07/29/2008, 05/30/1998, 12/14/1996, Additional history exists HPV/Cotest (30-65) 06/27/2023 COVID-19 Vaccine (2023-2 5 season) 2023 11/04/2020, 10/07/2020 CERVICAL CANCER SCREENING 08/09/2024 PAP SMEAR 08/09/2024 08/09/2021 INFLUENZA VACCINE (#1) 2024 04/11/2007 HEPATITIS B VACCINES Completed 05/30/1998, 05/30/1998, 12/27/1997, Additional history exists Medical Devices Implanted Type Area Mask Designer Device Identifier Shelf Expiration Date Model / Serial / Lot Seamguard Endogia 60 Blk [id number] - [id number] Implanted:Qt y: 1 on 11/13/2021 by Pietro Ferrer MD at [facility] Biological N/A: Stomach [employer] [id number] 06/19/2024 12BSGTRI 60B / / [id number] Seamguard Endogia 60 Blk [id number] - [id number] Implanted:Qt y: 1 on 11/13/2021 by Pietro Ferrer MD at [facility] Biological N/A: Stomach [employer] [id number] 06/19/2024 12BSGTRI 60B / / [id number] Seamguard Endogia 60 Prpl [id number] - [id number] Implanted:Qt y: 1 on 11/13/2021 by Pietro Ferrer MD at [facility] Biological N/A: Stomach [employer] [id number] 06/19/2024 12BSGTRI 60P / / [id number] Seamguard Endogia 60 Prpl [id number] - [id number] Implanted:Qt y: 1 on 11/13/2021 by Pietro Ferrer MD at [facility] Biological N/A: Stomach [employer] [id number] 06/19/2024 12BSGTRI 60P / / [id number] Seamguard Endogia 60 Prpl [id number] - [id number] Implanted:Qt y: 1 on 11/13/2021 by Pietro Ferrer MD at [facility] Biological N/A: Stomach [employer] [id number] 2024 12BSGTRI 60P / / [id number] Iud Insurance AETNA OPEN CHOICE PPO [facility] [id number] RX RIVERA PLANS (INTERNAL) [facility] [employer] Advance Directives For more information, please contact: [phone] * Full Code (Latest Code Status on File) Date Activated Date Inactivated Comments 11/13/2021 12:49 PM 11/15/2021 12:52 PM * Full Code Date Activated Date Inactivated Comments 11/13/2021 11:07 AM 11/13/2021 12:49 PM * Full Code Date Activated Date Inactivated Comments 09/03/2016 6:44 PM 09/06/2016 12:50 PM
--- OUTSIDE RECORDS SUMMARY | 2024-10-03 17:28 | XMS_ITS | Encounter Summary ---
Author Organization [facility] Address [address] [place] [address] Phone Care Team Providers Care Format Proofreader Name Role Phone Jade Fair NP Primary Care Provider + Evelina Kim Unavailable Khadijah Rahman DNP Unavailable [phone] Encounter Details Date Type Department Care Team (Late st Contact Info) Description 09/24/2023 E-Visit [facility] Dermatology [address] 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 Gender Identity Not on file Sexual Orientation Not on file documented as of this encounter Plan of Treatment Not on file documented as of this encounter Visit Diagnoses Not on filedocumented in this encounter Additional Health Concerns Infection Onset Date Last Indicated Resolved Time COVID: Suspected 03/11/2024 03/11/2024 03/11/2024 8:58 AM WORD PROCESSING SUPERVISOR documented as of this encounter Care Teams Format Proofreader Relationship Specialty Start Date End Date Jade Fair NP [address] [facility] [address] [place] [address] PCP - General Family Medicine 05/01/21 Evelina Kim PA [address] [place] [address] Physician Spindle Repairer Neurology 10/16/21 07/26/24 Khadijah Rahman DNP [address] [facility] NEUROLOGY SLEEP [facility] [address] [place] [address] Nurse Practitioner Sleep Medicine 07/27/24 documented as of this encounter
--- OUTSIDE RECORDS SUMMARY | 2024-10-03 17:28 | XMS_ITS | Encounter Summary ---
Author Organization Address [address] [place] [address] Care Team Providers Care Liquid Flavor Compounder Name Role Phone Unavailable Primary Care Provider Unavailabl e Reason for Visit * Reason Onset Date Comments Other 11/09/2015 Encounter Details Date Type Department Care Team (Late st Contact Info) Description 11/09/2015 Telephone [facility] [address] [place] [address] Frida Santiago MD [address] [facility] [facility] [address] [place] [address] Other Social History Tobacco Use Types Packs/Day [...]
[2024-10-03 17:30] VITALS: BP 138/91; PULSE 94; RESP 15; TEMP 36.8; O2SAT 100
[2024-10-03 17:46] VITALS: BP 122/85; PULSE 93; RESP 15; O2SAT 100
[2024-10-03 17:48] LABS: BEDSIDEPREGUCG Negative (Negative)
[2024-10-03 17:53] LABS: Hematocrit 42.1 % (37.0-47.0); Hemoglobin 14.2 g/dL (12.0-15.0); Immature Granulocyte Percent A 0.4 % (0-0.5); Lymphocytes Absolute Auto 1.93 K/mm3 (0.9-3.2); Mean Corpuscular HGB Conc 33.7 g/dl (32-36); Mean Corpuscular Hemoglobin 30.3 pg (26-34); Mean Corpuscular Volume 90.0 fl (80-100); Nucleated Red Blood Cells Absolute Auto 0.000 K/mm3 (0.0-0.012); Nucleated Red Blood Cells Perc 0.0 % (0.0-0.2); Platelet Count Result 310 k/mm3 (150-375); Red Blood Count 4.68 M/mm3 (4.2-5.4); White Blood Count 7.0 K/mm3 (4.5-10.0)
--- OUTSIDE RECORDS SUMMARY | 2024-10-03 18:00 | XMS_ITS | Encounter Summary ---
Author Organization [facility] Address [address] [place] [address] Care Team Providers Care Scrap Dealer Name Role Phone Unavailable Primary Care Provider Unavailabl e Reason for Visit * Reason Onset Date Comments Other 11/25/2015 Encounter Details Date Type Department Care Team (Late st Contact Info) Description 11/25/2015 Telephone [facility] [address] [facility] [place] [address] Frida Santiago MD [address] [facility]. [facility] [address] [place] [address] Other Social History Tobacco Use Types Packs/Day [...]
--- OUTSIDE RECORDS SUMMARY | 2024-10-03 18:00 | XMS_ITS | Encounter Summary ---
Author Organization [facility] Address [address] [place] [address] Care Team Providers Care Wet End Supervisor Name Role Phone Unavailable Primary Care Provider Unavailabl e Reason for Visit * Reason Onset Date Comments Other 11/09/2015 Encounter Details Date Type Department Care Team (Late st Contact Info) Description 11/09/2015 Telephone [facility] [address] [facility] [place] [address] Frida Santiago MD [address] [facility]. [facility] [address] [place] [address] Other Social History Tobacco Use Types Packs/Day [...]
--- OUTSIDE RECORDS SUMMARY | 2024-10-03 18:00 | XMS_ITS | Encounter Summary ---
Author Organization [facility] Address [address] [place] [address] Phone Care Team Providers Care Sail Lay Out Worker Name Role Phone Jade Fair NP Primary Care Provider + Evelina Kim Unavailable Khadijah Rahman DNP Unavailable [phone] Encounter Details Date Type Department Care Team (Late st Contact Info) Description 09/24/2023 E-Visit [facility] Dermatology [address] [facility] [address] [address] [place] [address] Elizabeth Gottlieb MD PhD [address] 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 Gender Identity Not on file Sexual Orientation Not on file documented as of this encounter Plan of Treatment Not on file documented as of this encounter Visit Diagnoses Not on filedocumented in this encounter Additional Health Concerns Infection Onset Date Last Indicated Resolved Time COVID: Suspected 03/11/2024 03/11/2024 03/11/2024 8:58 AM GROUP CIO documented as of this encounter Care Teams Sail Lay Out Worker Relationship Specialty Start Date End Date Jade Fair NP [address] [facility] [address] [place] [address] PCP - General Family Medicine 05/01/21 Evelina Kim PA [address] [place] [address] Physician Compliance Reviewer Neurology 10/16/21 07/26/24 Khadijah Rahman DNP [address] [facility] NEUROLOGY SLEEP [facility] [address] [place] [address] Nurse Practitioner Sleep Medicine 07/27/24 documented as of this encounter
--- OUTSIDE RECORDS SUMMARY | 2024-10-03 18:00 | XMS_ITS | Clinical Summary ---
Author Organization [facility] [employer] Address [address] [facility] [place] [address] Care Team Providers Care Geophysical Drafter Name Role Phone Jade Fair FIREARMS ASSEMBLY SUPERVISOR-SAMPLE COORDINATOR Primary Care Provider + Source Comments [facility] [employer],non-owned Affiliates and Associated Physician Practices is amultiple site organization consisting of ambulatory clinics and hospital sitesin [place], [place], [place] and [place]. This disclosure is being madepursuant to the Care Everywhere program and may not contain all information available regarding this patient. Last updated 17.[employer] Allergies No known active allergies Medications * [...] (FLONASE SENSIMIST/VERAMY ST) 27.5 MCG/SPRAY nasal spray [place] 1 Inhaler into each nostril 2 times [...] over weekend) - CALL PATIENT DIRECTLY AT [phone] IF CALLING WITH RESULTS. 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 Reactive cellular changes present. 08/15/2021 3:15 PM CDT [facility] at 1514 CDT Other Inflammation present. 08/15/2021 3:15 PM CDT [facility] Pap Footnote The Pap Smear is a screening test. False positive and false negative results occur. Negative results do not preclude abnormalities, thus clinical correlation is required. This specimen was evaluated by the [employer] System along with an additional manual rescreening by a health promotion officer and/or pathologist. 08/15/2021 3:15 PM CDT [facility] Embedded Images 3:15 PM CDT [facility] Pathology/Cytolo gy MISCELLANEOUS SAMPLES / Unknown 08/09/2021 3:15 PM CDT 08/10/2021 12:29 PM CDT Tristen Loza MD LAB - PATHOLOGY/CYTOLOGY ORDER TRA Final Result [facility] [address] [facility] [place] [address], [facility] [phone] * HIV-1 HIV-2 ANTIBODY + HIV P24 [...] purpose. For additional information please refer to [email or web address] [email or web address] [email or web address] (This link is being provided for informational/ educational purposes only.) The performance of this assay has not been clinically validated in patients less than 2 years old. Test Performed at: [facility] [address] [place] [address] TWYLA FAIR DO,MPH Blood BLOOD SPECIMEN / Unknown 08/09/2021 08/09/2021 2:58 PM CDT Tristen Loza MD LAB - CHEMISTRY ORDERABLES Fin al Result [facility] [address] [place] [address] from Last 3 Months or Most Recently Relevant to Health Maintenance Insurance [facility] [place] [facility] AETNA Care Teams Geophysical Drafter Relationship Specialty Start Date End Date Jade Fair, FIREARMS ASSEMBLY SUPERVISOR-SAMPLE COORDINATOR [address] [place] [address] PCP - General Nurse Practitioner Family 11/27/21
--- OUTSIDE RECORDS SUMMARY | 2024-10-03 18:00 | XMS_ITS | Clinical Summary ---
Author Organization [facility] Address [address] [place] [address] Phone Care Team Providers Care Fisheries Inspector Name Role Phone Unavailable Primary Care Provider [...] history exists Medical Devices Implanted Type Area Musical Performer Device Identifier Shelf Expiration Date Model / Serial / Lot Seamguard Endogia 60 Blk [id number] - [id number] Implanted:Qt y: 1 on 11/13/2021 by Pietro Ferrer MD at [facility] Biological N/A: Stomach [employer] [id number] 06/19/2024 12BSGTRI 60B / / [id number] Seamguard Endogia 60 Blk [id number] - [id number] Implanted:Qt y: 1 on 11/13/2021 by Pietro Ferrer MD at [facility] Biological N/A: Stomach [employer] [id number] 06/19/2024 12BSGTRI 60B / / [id number] Seamguard Endogia 60 Prpl [id number] - [id number] Implanted:Qt y: 1 on 11/13/2021 by Pietro Ferrer MD at [facility] Biological N/A: Stomach [employer] [id number] 06/19/2024 12BSGTRI 60P / / [id number] Seamguard Endogia 60 Prpl [id number] - [id number] Implanted:Qt y: 1 on 11/13/2021 by Pietro Ferrer MD at [facility] Biological N/A: Stomach [employer] [id number] 06/19/2024 12BSGTRI 60P / / [id number] Seamguard Endogia 60 Prpl [id number] - [id number] Implanted:Qt y: 1 on 11/13/2021 by Pietro Ferrer MD at [facility] Biological N/A: Stomach [employer] [id number] 2024 12BSGTRI 60P / / [id number] Iud Insurance AETNA OPEN CHOICE PPO [facility] [id number] RX RIVERA PLANS (INTERNAL) [facility] [employer] Advance Directives For more information, please contact: [phone] * Full Code (Latest Code Status on File) Date Activated Date Inactivated Comments 11/13/2021 12:49 PM 11/15/2021 12:52 PM * Full Code Date Activated Date Inactivated Comments 11/13/2021 11:07 AM 11/13/2021 12:49 PM * Full Code Date Activated Date Inactivated Comments 09/03/2016 6:44 PM 09/06/2016 12:50 PM
--- OUTSIDE RECORDS SUMMARY | 2024-10-03 18:00 | XMS_ITS | Continuity of Care Document ---
Author Organization [facility] Address [address] [place] [address] [address] [place] [address] Phone Care Team Providers Care Manufacturing Business Analyst Name Role Phone Virgilio FRANKEL MD, Marline Unavailable Unavailable Procedures Procedure Date GDX Optic Nerve GDX Optic Nerve Results Test Name Date and Time Measure Units Reference Range Abnormal Flag Status Commen ts Panel Description: [id number] Final Image Zeiss Result 1 Advance Directives Directive Yes / No Effective Date File Name No Information Encounters Encounter Description Practice Location Reason(s) For Visit Diagnoses Date Provider Providers Copied on Encounter [facility], [address] [place] [address], [id number], tel:[phone] OPH CONSULT FABRIZIO HODGES No Information 2 Virgilio Horan. [address] [place] [address], [place], [id number], [place]. tel:[phone] Referring Provider: Sabra Smith MD, [address] [place] [address], [place], [address]. tel:[phone] [facility], [address] [place] [address], [id number], [place] tel:[phone] OPH CONSULT FABRIZIO HODGES No Information 2 Virgilio Horan. [address] [place] [address], [id number], [place]. tel:[phone] Referring Provider: Sabra Smith MD, [address] [place] [address], [place], [address]. tel:[phone] Family History Family Member Type Diagnosis Age At Onset No Information Payers Payer name Insurance type Covered alliance party ID Lalit mcqueen(s) Claudy [id number] Social History Type Description Quantity Date Captured [...]
--- OUTSIDE RECORDS SUMMARY | 2024-10-03 18:01 | XMS_ITS | Referral Summary ---
Author Organization [facility] Address [address] [place] [address] Phone Care Team Providers Care Order Processor Name Role Phone Jade Fair NP Primary Care Provider + Khadijah Rahman DNP Unavailable [phone] Encounters Date Type Department Care Team Description 07/27/2024 8:30 AM CDT Office Visit [facility] Ophthalmology [facility] [address] [place] [phone] Loly Penaloza MD Idiopathic intracranial hypertension (Primary Dx); Frequent headaches; Visual aura 07/27/2024 8:20 AM CDT Imaging Exam [facility] Ophthalmology [facility] [address] [place] [phone] Idiopathic intracranial hypertension 07/27/2024 8:00 AM CDT Imaging Exam [facility] Ophthalmology [address] [facility] [address] [phone] Idiopathic intracranial hypertension 07/20/2024 Telephone [facility] Ophthalmology [facility] [place] [address] Loly Penaloza MD Scheduling Appointments 07/14/2024 Orders Only [facility] Primary Care at [address] [phone] Jade Fair NP Fatigue, unspecified type (Primary Dx) 07/13/2024 Orders Only [facility] Primary Care at [address] [address] aJde Fair NP 07/09/2024 5:13 PM CDT - 07/09/2024 11:59 PM CDT Hospital Encounter [facility] [address] [place] [address] Discharge Disposition: Discharge to home or self care 07/09/2024 4:15 PM CDT Lab [facility] Primary Care at [address] [phone] Fatigue, unspecified type 07/08/2024 10:30 AM CDT Telemedicine [facility] Primary Care at [address] [phone] Jade Fair NP Fatigue, unspecified type (Primary Dx); Costal chondritis; Iron deficiency anemia, unspecified iron deficiency anemia type 07/06/2024 Orders Only [facility] Primary Care at [address] [phone] Jade Fair NP from Last [...] 04/01/2024 Assessment & Plan (04/01/2024 1:28 PM PROFESSOR OF VOICE): Dizziness more likely the result of hypotension [...] 03/05/2023 Assessment & Plan (03/05/2023 9:25 AM PROFESSOR OF VOICE): Continue with prilosec for acid reflux. todays [...] ordered Assessment & Plan (03/01/2022 1:56 PM PROFESSOR OF VOICE): Bariatric labs ordered Iron deficiency anemia 11/22/2021 Assessment & Plan (04/01/2024 1:27 PM PROFESSOR OF VOICE): Repeat anemia panel Mild dizziness noted; more likely related to drop in BP as opposed to decreased hemoglobin Assessment & Plan (11/22/2021 10:45 AM CDT): Repeat cbc Hypertriglyceridemia 10/02/2021 Assessment & Plan (07/09/2023 3:20 PM CDT): Lipid panel ordered Assessment & Plan (03/05/2023 9:25 AM PROFESSOR OF VOICE): Repeat labs next visit Assessment & Plan (10/02/2021 2:33 PM CDT): Repeat labs 6 months Idiopathic intracranial hypertension 06/30/2021 Overview (10/16/2021): - 04/2021 seen by art instructor at [facility], noted to have disc [...] Plan (11/01/2023 9:25 AM CDT): =seen by art instructor at [facility] [employer], noted to have disc [...] time Assessment & Plan (04/02/2022 1:53 PM PROFESSOR OF VOICE): sLIGHT WORSENING OF ANXIETY AND DEPRESSION NOTED. [...] INHIBITOR. Assessment & Plan (02/19/2022 3:11 PM PROFESSOR OF VOICE): Papilledema resolved today, OCT with normal RNFL [...] diamox Assessment & Plan (05/24/2021 3:35 PM PROFESSOR OF VOICE): Follow up with neuro-opthamology Arthritis 05/08/2021 Assessment & Plan (05/08/2021 10:28 AM PROFESSOR OF VOICE): Joint pain that is intermittent, ordered lab work to rule out any kind of autoimmune process. Referral to Neurology. Numbness and tingling in right hand 05/05/2021 Assessment & Plan (05/08/2021 10:28 AM PROFESSOR OF VOICE): Ordered referral to neurology; EMG testing to be performed; lab work as noted Tinnitus, right ear 04/26/2021 Assessment & Plan (05/08/2021 10:27 AM PROFESSOR OF VOICE): I do want her to continue with MRI scan of the brain to rule out any kind of tumor in the ear canal or other forms of tumors in the brain Assessment & Plan (05/01/2021 1:38 PM PROFESSOR OF VOICE): Due to new tinnitus of the right eat along with headache I recommend MRI of the brain to rule out tumors Anxiety 04/04/2021 Assessment & Plan (04/01/2024 1:27 PM PROFESSOR OF VOICE): Stable on current dose of benzo; instructed [...] properties. Assessment & Plan (03/05/2023 9:24 AM PROFESSOR OF VOICE): Stable on current dose of benzo; instructed [...] understanding. Assessment & Plan (04/04/2021 10:57 AM PROFESSOR OF VOICE): Started on xanax short term; up to 3 months for anxiety and depression; instructed on benzo use; SIDE EFFECT of benzos, potential for addiction Major depressive disorder, recurrent, moderate 0 04/03/2021 Assessment & Plan (04/02/2022 1:53 PM PROFESSOR OF VOICE): sLIGHT WORSENING OF ANXIETY AND DEPRESSION NOTED. [...] 11/06/2013 Assessment & Plan (04/01/2024 1:17 PM PROFESSOR OF VOICE): Given samples of [facility] ODT Assessment & Plan (11/01/2023 9:25 AM CDT): Improvement in migraines with weight loss noted. Assessment & Plan (05/08/2021 10:27 AM PROFESSOR OF VOICE): Considered migraines causing issues however patient does [...] 04/01/2024 Assessment & Plan (03/11/2024 9:31 AM PROFESSOR OF VOICE): Patient was given antibiotics instructed to call [...] (04/06/2022): Added automatically from request for surgery [id number] Jaundice 03/01/2022 03/04/2023 Assessment & Plan (03/01/2022 1:56 PM PROFESSOR OF VOICE): CMP ordered to evaluate for bilirubin and liver enzymes Acute non-recurrent frontal sinusitis 01/29/2022 03/04/2023 Assessment & Plan (01/29/2022 1:59 PM PROFESSOR OF VOICE): Presents with acute sinusitis, instructed patient on [...] 11/13/202107/04 Assessment & Plan (04/02/2022 1:52 PM PROFESSOR OF VOICE): SLIGHT WORSENING OF ANXIETY AND DEPRESSION NOTED. [...] 10/02/202102/2023 Assessment & Plan (04/02/2022 1:52 PM PROFESSOR OF VOICE): BMI Follow-up includes: nutrition counseling. Assessment & Plan (03/01/2022 1:56 PM PROFESSOR OF VOICE): BMI Follow-up includes: nutrition counseling. b Assessment [...] rate. Assessment & Plan (05/31/2021 1:05 PM PROFESSOR OF VOICE): Patient presents for weight loss education. Today we discussed getting even more active. We discussed how to optimize health through exercise. adipex ordered; follow up in 1 month Sensory disorder of smell 05/05/2021 Assessment & Plan (05/08/2021 10:27 AM PROFESSOR OF VOICE): Continue with MRI of the brain; referral to neurology New daily persistent headache 04/26/2021 05/05/2021 Assessment & Plan (05/01/2021 1:38 PM PROFESSOR OF VOICE): MRI of the brain ordered; ordered reglan and toradol for suspect acute migraine Major depressive disorder, recurrent, mild 04/03/2021 04/02/2022 Major depressive disorder, r ecurrent, unspecified 04/03/2021 04/02/2022 Assessment & Plan (04/04/2021 10:56 AM PROFESSOR OF VOICE): STARTED ON ZOLOFT 25MG Instructed patient on [...] counseling. Assessment & Plan (05/31/2021 1:05 PM PROFESSOR OF VOICE): BMI Follow-up includes: nutrition counseling. Assessment & Plan (05/24/2021 3:35 PM PROFESSOR OF VOICE): BMI Follow-up includes: nutrition counseling and exercise counseling. Assessment & Plan (05/08/2021 10:25 AM PROFESSOR OF VOICE): BMI Follow-up includes: nutrition counseling. Assessment & Plan (03/28/2021 1:23 PM PROFESSOR OF VOICE): BMI Follow-up includes: nutrition counseling. Dizziness 03/27/2021 05/05/2021 Assessment & Plan (05/01/2021 1:38 PM PROFESSOR OF VOICE): MRI of the brain ordered due to headaches and dizziness Assessment & Plan (04/04/2021 10:57 AM PROFESSOR OF VOICE): Improvement noted with meclizine and analia maneuver; call if worsening of dizziness occurs Assessment & Plan (03/28/2021 1:22 PM PROFESSOR OF VOICE): Likely benign positional vertigo, instructed patient on [...] on file Legal Sex Female 10:52 AM PROFESSOR OF VOICE Gender Identity Not on file Sexual Orientation Not on file Last Filed Vital Signs Vital Sign Reading Time Taken Comments Blood Pressure 126/80 04/01/2024 12:55 PM PROFESSOR OF VOICE Pulse 85 04/01/2024 12:55 PM PROFESSOR OF VOICE Temperature 37 C (98.6 F) 03/11/2024 8:27 AM PROFESSOR OF VOICE Respiratory Rate 14 08/17/2022 8:10 AM CDT Oxygen Saturation 98% 04/01/2024 12:55 PM PROFESSOR OF VOICE Inhaled Oxygen Concentration - - Weight 79.4 kg (175 lb) 04/01/2024 12:55 PM PROFESSOR OF VOICE Height 165.1 cm (5' 5) 04/01/2024 12:55 PM PROFESSOR OF VOICE Body Mass Index 29.12 04/01/2024 12:55 PM PROFESSOR OF VOICE Plan of Treatment Not on file Procedures [...] gran abs 0.02 0.00 - 0.10 K/cumm [facility] Lymphocyte abs 2.33 0.80 - 3.30 K/cumm [facility] Monocyte abs 0.59 0.20 - 0.80 K/cumm [facility] Eosinophil abs 0.10 0.00 - 0.50 K/cumm [facility] Basophil abs 0.04 0.00 - 0.10 K/cumm [facility] Neutrophil pct 56.5 % [facility] Comment: Interpretive Data Percent cell count reference ranges are not reported, since discordance with absolute values may lead to misinterpretation of CBC data. Current Interpretive Data was last revised on 2017. Imm gran pct 0.3 % [facility] Comment: Interpretive Data Percent cell count reference ranges are not reported, since discordance with absolute values may lead to misinterpretation of CBC data. Current Interpretive Data was last revised on 2017. Lymphocyte pct 32.9 % [facility] Comment: Interpretive Data Percent cell count reference ranges are not reported, since discordance with absolute values may lead to misinterpretation of CBC data. Current Interpretive Data was last revised on 2017. Monocyte pct 8.3 % [facility] Comment: Interpretive Data Percent cell count reference ranges are not reported, since discordance with absolute values may lead to misinterpretation of CBC data. Current Interpretive Data was last revised on 2017. Eosinophil pct 1.4 % [facility] Comment: Interpretive Data Percent cell count reference ranges are not reported, since discordance with absolute values may lead to misinterpretation of CBC data. Current Interpretive Data was last revised on 2017. Basophil pct 0.6 % [facility] Comment: Interpretive Data Percent cell count reference ranges are not reported, since discordance with absolute values may lead to misinterpretation of CBC data. Current Interpretive Data was last revised on 2017. Blood 07/09/2024 4:35 PM CDT 07/09/2024 7:57 PM CDT Jade Fair NP LAB BLOOD ORDERABLES Fin al Result Performing Organization Address [facility] Co de Phone Number [facility] [address] [facility] [place] [address] * Thyroid Function Lyme (07/09/2024 4:35 PM CDT) Pathologist [facility] TSH 1.55 0.30 - 4.20 mcIUnit/mL Blood 07/09/2024 4:35 PM CDT 07/09/2024 8:21 PM CDT Jade Fair NP LAB BLOOD ORDERABLES Fin al Result Performing Organization Address [facility] de Phone Number [facility] [address] [facility] [place] [address] * CBC with auto differential (07/09/2024 4:35 PM CDT) Pathologist [facility] WBC 7.09 3.80 - 9.90 K/cumm Hgb 13.3 11.9 - 15.5 g/dL [facility] Hct 40.2 35.6 - 45.5 % [facility] Plt 340 150 - 400 K/cumm [facility] MPV 10.7 9.1 - 12.3 fL [facility] RBC 4.32 3.90 - 5.20 M/cumm [facility] MCV 93.1 81.3 - 96.4 fL [facility] MCH 30.8 27.1 - 33.3 pg [facility] MCHC 33.1 32.3 - 35.7 g/dL [facility] RDW CV 12.0 11.1 - 14.9 % [facility] RDW SD 41.0 35.7 - 48.1 fL [facility] NRBC abs 0.00 0.00 - 0.01 K/cumm [facility] Blood 07/09/2024 4:35 PM CDT 07/09/2024 7:57 PM CDT Jade Fair NP LAB BLOOD ORDERABLES Fin al Result Performing Organization Address [facility] de Phone Number [facility] [address] [place] [address] * Vitamin D 25 hydroxy (07/09/2024 4:35 PM CDT) [facility] Vitamin D 25-OH 34 30 - 80 ng/mL Blood 07/09/2024 4:35 PM CDT 07/09/2024 8:21 PM CDT Jade Fair NP LAB BLOOD ORDERABLES Fin al Result Performing Organization Address [facility] de Phone Number [facility] [address] Department [place] [address] * Vitamin B12 (07/09/2024 4:35 PM CDT) [facility] Vitamin B12 753 230 - 1,250 pg/mL Blood 07/09/2024 4:35 PM CDT 07/09/2024 8:21 PM CDT Jade Fair NP LAB BLOOD ORDERABLES Fin al Result Performing Organization Address [facility] de Phone Number [facility] [address] [facility] [place] [address] * Hepatitis C antibody Blood (12/13/2023 3:15 PM CDT) [facility] Hep C Ab Nonreactive Nonreactive Comment: [...] - GENERA L ORDERABLES Final Result [place] [id number] Department [place] [address] * Pap with reflex to High Risk HPV and Genotyping (Cytology Component) (12/07/2022 3:23 PM CDT) Thin prep (Pap test) 12/07/2022 3:23 PM CDT 12/11/2022 11:07 AM CDT Narrative PATHOLOGY [facility] - 12/17/2022 1:00 PM CDT EPIC results best viewed via link to PDF [place] [id number] [place], [place] [address] Tele: Vijaya Lopez MD - Stores Laborer CYTOLOGY REPORT Note to Patients: This report [...] the details. Patient Name: RUTH PANDA Address: [address] [place] [phone] Gender: F : 1995 (Age: 27) Service: Location: [facility] #: [id number] Patient Type: [facility] SPECIMEN Taken: 12/07/2022 Reported: 12/17/2022 Physician(s): Paula Wilson CNM FINAL DIAGNOSIS: SOURCE OF SPECIMEN - ThinPrep Pap w/ reflex HPV: STATEMENT OF ADEQUACY Source: Cervical/Endocervical - Satisfactory for interpretation - Endocervical /Transformation Zone component present - Case screened using computer assisted imaging technology and manually re- screened by a roofing layer. GENERAL CATEGORIZATION: - Negative for intraepithelial lesion [...] LAB CYTOLOGY ORDERABLES F inal Result PATHOLOGY [facility] Laboratory Receiving [address] 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
--- OUTSIDE RECORDS SUMMARY | 2024-10-03 18:01 | XMS_ITS | Clinical Summary ---
Author Organization [facility] Address [address] [place] [address] Phone Care Team Providers Care Learning Administrator Name Role Phone Jade Fair ADON Primary Care Provider + Khadijah Rahman DNP Unavailable [phone] Allergies No known active allergies Medications [...] 04/01/2024 Assessment & Plan (04/01/2024 1:28 PM CHICKEN TENDER): Dizziness more likely the result of hypotension [...] 03/05/2023 Assessment & Plan (03/05/2023 9:25 AM CHICKEN TENDER): Continue with prilosec for acid reflux. todays [...] ordered Assessment & Plan (03/01/2022 1:56 PM CHICKEN TENDER): Bariatric labs ordered Iron deficiency anemia 11/22/2021 Assessment & Plan (04/01/2024 1:27 PM CHICKEN TENDER): Repeat anemia panel Mild dizziness noted; more likely related to drop in BP as opposed to decreased hemoglobin Assessment & Plan (11/22/2021 10:45 AM CDT): Repeat cbc Hypertriglyceridemia 10/02/2021 Assessment & Plan (07/09/2023 3:20 PM CDT): Lipid panel ordered Assessment & Plan (03/05/2023 9:25 AM CHICKEN TENDER): Repeat labs next visit Assessment & Plan (10/02/2021 2:33 PM CDT): Repeat labs 6 months Idiopathic intracranial hypertension 06/30/2021 Overview (10/16/2021): - 04/2021 seen by sanitary napkin machine tender at [facility], noted to have disc edema [...] Plan (11/01/2023 9:25 AM CDT): =seen by sanitary napkin machine tender at [facility], noted to have disc [...] time Assessment & Plan (04/02/2022 1:53 PM CHICKEN TENDER): sLIGHT WORSENING OF ANXIETY AND DEPRESSION NOTED. [...] INHIBITOR. Assessment & Plan (02/19/2022 3:11 PM CHICKEN TENDER): Papilledema resolved today, OCT with normal RNFL [...] diamox Assessment & Plan (05/24/2021 3:35 PM CHICKEN TENDER): Follow up with neuro-opthamology Arthritis 05/08/2021 Assessment & Plan (05/08/2021 10:28 AM CHICKEN TENDER): Joint pain that is intermittent, ordered lab work to rule out any kind of autoimmune process. Referral to Neurology. Numbness and tingling in right hand 05/05/2021 Assessment & Plan (05/08/2021 10:28 AM CHICKEN TENDER): Ordered referral to neurology; EMG testing to be performed; lab work as noted Tinnitus, right ear 04/26/2021 Assessment & Plan (05/08/2021 10:27 AM CHICKEN TENDER): I do want her to continue with MRI scan of the brain to rule out any kind of tumor in the ear canal or other forms of tumors in the brain Assessment & Plan (05/01/2021 1:38 PM CHICKEN TENDER): Due to new tinnitus of the right eat along with headache I recommend MRI of the brain to rule out tumors Anxiety 04/04/2021 Assessment & Plan (04/01/2024 1:27 PM CHICKEN TENDER): Stable on current dose of benzo; instructed [...] properties. Assessment & Plan (03/05/2023 9:24 AM CHICKEN TENDER): Stable on current dose of benzo; instructed [...] understanding. Assessment & Plan (04/04/2021 10:57 AM CHICKEN TENDER): Started on xanax short term; up to 3 months for anxiety and depression; instructed on benzo use; SIDE EFFECT of benzos, potential for addiction Major depressive disorder, recurrent, moderate 0 04/03/2021 Assessment & Plan (04/02/2022 1:53 PM CHICKEN TENDER): sLIGHT WORSENING OF ANXIETY AND DEPRESSION NOTED. [...] 11/06/2013 Assessment & Plan (04/01/2024 1:17 PM CHICKEN TENDER): Given samples of [facility] ODT Assessment & Plan (11/01/2023 9:25 AM CDT): Improvement in migraines with weight loss noted. Assessment & Plan (05/08/2021 10:27 AM CHICKEN TENDER): Considered migraines causing issues however patient does [...] 04/01/2024 Assessment & Plan (03/11/2024 9:31 AM CHICKEN TENDER): Patient was given antibiotics instructed to call [...] (04/06/2022): Added automatically from request for surgery [id number] Jaundice 03/01/2022 03/04/2023 Assessment & Plan (03/01/2022 1:56 PM CHICKEN TENDER): CMP ordered to evaluate for bilirubin and liver enzymes Acute non-recurrent frontal sinusitis 01/29/2022 03/04/2023 Assessment & Plan (01/29/2022 1:59 PM CHICKEN TENDER): Presents with acute sinusitis, instructed patient on [...] 11/13/202107/04 Assessment & Plan (04/02/2022 1:52 PM CHICKEN TENDER): SLIGHT WORSENING OF ANXIETY AND DEPRESSION NOTED. [...] 10/02/202102/2023 Assessment & Plan (04/02/2022 1:52 PM CHICKEN TENDER): BMI Follow-up includes: nutrition counseling. Assessment & Plan (03/01/2022 1:56 PM CHICKEN TENDER): BMI Follow-up includes: nutrition counseling. b Assessment [...] rate. Assessment & Plan (05/31/2021 1:05 PM CHICKEN TENDER): Patient presents for weight loss education. Today we discussed getting even more active. We discussed how to optimize health through exercise. 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 Assessment & Plan (05/31/2021 1:05 PM CHICKEN TENDER): BMI Follow-up includes: nutrition counseling. Assessment & Plan (05/24/2021 3:35 PM CHICKEN TENDER): BMI Follow-up includes: nutrition counseling and exercise counseling. Assessment & Plan (05/08/2021 10:25 AM CHICKEN TENDER): BMI Follow-up includes: nutrition counseling. Assessment & Plan (03/28/2021 1:23 PM CHICKEN TENDER): BMI Follow-up includes: nutrition counseling. Dizziness 03/27/2021 05/05/2021 Assessment & Plan (05/01/2021 1:38 PM CHICKEN TENDER): MRI of the brain ordered due to headaches and dizziness Assessment & Plan (04/04/2021 10:57 AM CHICKEN TENDER): Improvement noted with meclizine and analia maneuver; call if worsening of dizziness occurs Assessment & Plan (03/28/2021 1:22 PM CHICKEN TENDER): Likely benign positional vertigo, instructed patient on [...] Description 07/27/2024 8:30 AM CDT Office Visit [facility] 6th [place] [address] Loly Penaloza MD Idiopathic intracranial hypertension (Primary Dx); Frequent headaches; Visual aura 07/27/2024 8:20 AM CDT Imaging Exam [facility]hthalmology [address] [facility] [address] [place] [phone] Idiopathic intracranial hypertension 07/27/2024 8:00 AM CDT Imaging Exam [facility] Ophthalmology [address] [phone] Idiopathic intracranial hypertension 07/20/2024 Telephone [facility] Ophthalmology [address] [place] [address] Loly Penaloza MD Scheduling Appointments 07/14/2024 Orders Only [facility] Primary Care at [address] [address] Jade Fair NP Fatigue, unspecified type (Primary Dx) 07/13/2024 Orders Only [facility] Primary Care at [address] [phone] Jade Fair NP 07/09/2024 5:13 PM CDT - 07/09/2024 11:59 PM CDT Hospital Encounter [address] [address] Discharge Disposition: Discharge to home or self care 07/09/2024 4:15 PM CDT Lab [facility] Primary Care at [address] [address] Fatigue, unspecified type 07/08/2024 10:30 AM CDT Telemedicine [facility] Primary Care at [address] [address] Jade Fair NP Fatigue, unspecified type (Primary Dx); Costal chondritis; Iron deficiency anemia, unspecified iron deficiency anemia type 07/06/2024 Orders Only [facility] Medical [facility] Primary Care at [address] [address] Jade Fair NP from Last 3 Months [...] on file Legal Sex Female 10:52 AM CHICKEN TENDER Gender Identity Not on file Sexual Orientation [...] Comments Blood Pressure 126/80 04/01/2024 12:55 PM CHICKEN TENDER Pulse 85 04/01/2024 12:55 PM CHICKEN TENDER Temperature 37 C (98.6 F) 03/11/2024 8:27 AM CHICKEN TENDER Respiratory Rate 14 08/17/2022 8:10 AM CDT Oxygen Saturation 98% 04/01/2024 12:55 PM CHICKEN TENDER Inhaled Oxygen Concentration - - Weight 79.4 kg (175 lb) 04/01/2024 12:55 PM CHICKEN TENDER Height 165.1 cm (5' 5) 04/01/2024 12:55 PM CHICKEN TENDER Body Mass Index 29.12 04/01/2024 12:55 PM CHICKEN TENDER Plan of Treatment Health Maintenance Due Date [...] gran abs 0.02 0.00 - 0.10 K/cumm [facility] Lymphocyte abs 2.33 0.80 - 3.30 K/cumm [facility] Monocyte abs 0.59 0.20 - 0.80 K/cumm [facility] Eosinophil abs 0.10 0.00 - 0.50 K/cumm [facility] Basophil abs 0.04 0.00 - 0.10 K/cumm [facility] Neutrophil pct 56.5 % [facility] Comment: Interpretive Data Percent cell count reference ranges are not reported, since discordance with absolute values may lead to misinterpretation of CBC data. Current Interpretive Data was last revised on 2017. Imm gran pct 0.3 % [facility] Comment: Interpretive Data Percent cell count reference ranges are not reported, since discordance with absolute values may lead to misinterpretation of CBC data. Current Interpretive Data was last revised on 2017. Lymphocyte pct 32.9 % [facility] Comment: Interpretive Data Percent cell count reference ranges are not reported, since discordance with absolute values may lead to misinterpretation of CBC data. Current Interpretive Data was last revised on 2017. Monocyte pct 8.3 % [facility] Comment: Interpretive Data Percent cell count reference ranges are not reported, since discordance with absolute values may lead to misinterpretation of CBC data. Current Interpretive Data was last revised on 2017. Eosinophil pct 1.4 % [facility] Comment: Interpretive Data Percent cell count reference ranges are not reported, since discordance with absolute values may lead to misinterpretation of CBC data. Current Interpretive Data was last revised on 2017. Basophil pct 0.6 % [facility] Comment: Interpretive Data Percent cell count reference ranges are not reported, since discordance with absolute values may lead to misinterpretation of CBC data. Current Interpretive Data was last revised on 2017. Blood 07/09/2024 4:35 PM CDT 07/09/2024 7:57 PM CDT Jade Sima Fair NP LAB BLOOD ORDERABLES Fin al Result Performing Organization Address City/[facility]/ZIP Co de Phone Number [facility] [address] [place] [place] [address] * Thyroid Function Castaner (07/09/2024 4:35 PM CDT) Pathologist [facility] TSH 1.55 0.30 - 4.20 mcIUnit/mL Blood 07/09/2024 4:35 PM CDT 07/09/2024 8:21 PM CDT Jade Fair NP LAB BLOOD ORDERABLES Fin al Result Performing Organization Address [facility] Co de Phone Number [facility] [address] [employer] [place] [place] [address] * CBC with auto differential (07/09/2024 4:35 PM CDT) Pathologist [facility] WBC 7.09 3.80 - 9.90 K/cumm Hgb 13.3 11.9 - 15.5 g/dL [facility] Hct 40.2 35.6 - 45.5 % [facility] Plt 340 150 - 400 K/cumm [facility] MPV 10.7 9.1 - 12.3 fL [facility] RBC 4.32 3.90 - 5.20 M/cumm [facility] MCV 93.1 81.3 - 96.4 fL [facility] MCH 30.8 27.1 - 33.3 pg [facility] MCHC 33.1 32.3 - 35.7 g/dL [facility] RDW CV 12.0 11.1 - 14.9 % [facility] RDW SD 41.0 35.7 - 48.1 fL [facility] NRBC abs 0.00 0.00 - 0.01 K/cumm [facility] Blood 07/09/2024 4:35 PM CDT 07/09/2024 7:57 PM CDT Jade Fair NP LAB BLOOD ORDERABLES Fin al Result Performing Organization Address City/[facility] Co de Phone Number [facility] [address] [facility] [employer] [place] [address] * Vitamin D 25 hydroxy (07/09/2024 4:35 PM CDT) [facility] Vitamin D 25-OH 34 30 - 80 ng/mL Blood 07/09/2024 4:35 PM CDT 07/09/2024 8:21 PM CDT Jade Fair NP LAB BLOOD ORDERABLES Fin al Result Performing Organization Address [facility] Co de Phone Number [facility] [address] [place] [place] [address] * Vitamin B12 (07/09/2024 4:35 PM CDT) [facility] Vitamin B12 753 230 - 1,250 pg/mL Blood 07/09/2024 4:35 PM CDT 07/09/2024 8:21 PM CDT Jade Fair NP LAB BLOOD ORDERABLES Fin al Result Performing Organization Address City/[facility] Co de Phone Number [facility] [address] [facility] [place] [place] [address] * Hepatitis C antibody Blood (12/13/2023 3:15 PM CDT) [facility] Hep C Ab Nonreactive Nonreactive Comment: [...] CDT 12/13/2023 6:19 PM CDT Paula Wilson [facility] LAB MICROBIOLOGY - GENERA L ORDERABLES Final Result [facility] [address] [place] [address] * Pap with reflex to High Risk HPV and Genotyping (Cytology Component) (12/07/2022 3:23 PM CDT) Thin prep (Pap test) 12/07/2022 3:23 PM CDT 12/11/2022 11:07 AM CDT Narrative PATHOLOGY [facility] - 12/17/2022 1:00 PM CDT EPIC results best viewed via link to PDF [id number] [place], [place] [address] Tele: Vijaya Lopez MD - Traffic And Transport Planner CYTOLOGY REPORT Note to Patients: This report [...] the details. Patient Name: RUTH PANDA Address: [address] [place] [id number] Gender: F : 1995 (Age: 27) Service: Location: [facility] #: [id number] Patient Type: [facility] SPECIMEN Taken: 12/07/2022 Reported: 12/17/2022 Physician(s): Paula Wilson CNM FINAL DIAGNOSIS: SOURCE OF SPECIMEN - ThinPrep Pap w/ reflex HPV: STATEMENT OF ADEQUACY Source: Cervical/Endocervical - Satisfactory for interpretation - Endocervical /Transformation Zone component present - Case screened using computer assisted imaging technology and manually re- screened by a sales representative graphic art. GENERAL CATEGORIZATION: - Negative for intraepithelial lesion [...] LAB CYTOLOGY ORDERABLES F inal Result PATHOLOGY [facility] Laboratory Receiving [address] [place] [address] from Last 3 Months or Most Recently Relevant to Health Maintenance Insurance [facility] [employer] H[facility]/PPO Address: [address] [place] [address] [facility] H[facility]/PPO Address: [address] [place] [address] [facility] [employer] [facility] H[facility]/PPO Address: [address] [place] [address] Advance Directives For more information, please contact: [phone] Documents on File Type Date Recorded Patient Human Resources Supervisor Expl anation ADVANCE DIRECTIVE 08/02/2022 Care Teams Learning Administrator Relationship Specialty Start Date End Date Jade Fair NP [address] [address] PCP - General Family Medicine 05/01/21 Khadijah Rahman DNP [facility], [place] [address] Nurse Practitioner Sleep Medicine 07/27/24
--- NOTE | 2024-10-03 18:02 | ED_ITS ---
HPI - Abdominal Pain General Chief Complaint: Abdominal Pain Stated Complaint: constipation Time Seen by Provider: 10/03/24 17:49 Source: patient and family Mode of arrival: ambulatory Limitations: no limitations History of Present Illness HPI narrative: 29 y/o WF in the office for c/o abd pain and constipation X1 day. Pt states she has chronic bowel issues, much worse today with abd pain when trying to have a BM. Pt contacted a tele-doc and told to take Mag Citrate. Pt took w/o relief and feeling like she was going to pass out if she tried to use the restroom further. Pt denies any fiber intake outside of oatmeal, denies stool softener usage. Pt has dark stools, currently on iron tablets per PCP. History of hemorrhoids and currently has hemorrhoids. Pt drinks water throughout the day. Related Data Allergies Allergy/AdvReac Type Severity Reaction Status Date / Time No Known Allergies Allergy Verified 10/03/24 17:30 Review of Systems 2 Review of Systems: CONSTITUTIONAL: Denies fever, chills, or sweats. EYES: Denies visual changes, redness, or discharge. ENT: Denies rhinorrhea, congestion, sore throat, or otalgia. CARDIOVASCULAR: Denies chest pain, palpitations, or edema. RESPIRATORY: Denies cough or dyspnea. GASTROINTESTINAL: Endorses abdominal pain and inability to have a BM. Denies nausea, vomiting, or diarrhea. GENITOURINARY: Denies dysuria or hematuria. SKIN: Denies rash or itching. MUSCULOSKELETAL: Denies back pain, joint pain, or myalgia. NEUROLOGIC: Denies headache, numbness, or weakness. PSYCHIATRIC: Denies anxiety or depression. PMFSH Past Medical History Medical History Gallstones GERD (gastroesophageal reflux disease) Surgical History Surgical History (Updated 07/29/22 @ 19:07 by Ita Wynn PA-C) History of gastric surgery Social History Social History (Updated 07/29/22 @ 19:07 by Ita Wynn PA-C) Smoking status: Never smoker Exam 2 Narrative: GENERAL: Well-appearing, well-nourished, and in no acute distress. HEAD: Normocephalic, atraumatic. EYES: PERRLA and EOMI. ENT: Nares clear, no rhinorrhea or epistaxis. Mucous membranes moist. NECK: Supple. CHEST: Clear to auscultation. No respiratory distress. HEART: Regular rate and rhythm. No murmur heard. Normal peripheral pulses. ABDOMEN: Soft, moderately tender to LLQ and RLQ, nondistended, normal active bowel sounds. No hepatosplenomegaly EXTREMITIES: Normal range of motion. No edema. SKIN: Warm, dry, no rash. NEURO: No focal deficits. Alert and oriented x3. PSYCH: Normal mood and affect. Course Vital Signs Vital signs: Vital Signs Temperature 36.8 C 10/03/24 17:30 Pulse Rate 94 10/03/24 17:30 Respiratory Rate 15 10/03/24 17:30 Blood Pressure 138/91 H 10/03/24 17:30 Pulse Oximetry 100 10/03/24 17:30 Oxygen Delivery Room Air 10/03/24 17:30 Temperature 36.8 C 10/03/24 17:30 Pulse Rate 66 10/03/24 19:14 Respiratory Rate 13 10/03/24 19:14 Blood Pressure 123/80 10/03/24 19:14 Pulse Oximetry 100 10/03/24 19:14 Oxygen Delivery Room Air 10/03/24 17:30 MDM - Abdominal Pain MDM Narrative Medical decision making narrative: All labs unremarkable, save lipase but patient has chronic pancreatitis. CT per Radiology read. Patient states feeling better at this time will discharge with directions on azez-xtk-xrympnk stool softeners, laxatives, fiber supplements, and witch Olivia for hemorrhoids. Differential Diagnosis Differential diagnosis: Likely abdominal pain, calculus of kidney, constipation and pancreatitis Medical Records Attestation: I reviewed the patient's medical records. Lab Data Attestation: I reviewed the patient's lab results. 10/03/24 17:44 10/03/24 17:44 Labs: Lab Results 10/03/24 10/03/24 Range/Units 17:42 17:44 WBC 7.0 (4.5-10.0) K/mm3 RBC 4.68 (4.2-5.4) M/mm3 Hgb 14.2 (12.0-15.0) g/dL Hct 42.1 (37.0-47.0) % MCV 90.0 (80-100) fl MCH 30.3 (26-34) pg MCHC 33.7 (32-36) g/dl RDW 12.1 (11.5-14.5) % Plt Count 310 (150-375) k/mm3 MPV 10.2 (7.4-10.4) fl Immature Gran % (Auto) 0.4 (0-0.5) % Neut % (Auto) 60.0 (45.5-73.1) % Lymph % (Auto) 27.5 (18.3-44.2) % [place] % (Auto) 9.4 H (2.6-8.5) % Eos % (Auto) 2.1 (0-4.4) % Baso % (Auto) 0.6 (0.2-1.2) % Lymph # (Auto) 1.93 (0.9-3.2) K/mm3 [place] # (Auto) 0.7 H (0.1-0.6) K/mm3 Eos # (Auto) 0.2 (0-0.3) K/mm3 Baso # (Auto) 0.0 (0.0-0.1) K/mm3 Abs Immat Gran (auto) 0.03 (0.00-0.031) K/mm3 Absolute Neuts (auto) 4.2 (1.3-6.7) K/mm3 Absolute Nucleated RBC 0.000 (0.0-0.012) K/mm3 Nucleated RBC % 0.0 (0.0-0.2) % Sodium 138 (137-145) mmol/L Potassium 4.0 (3.4-5.0) mmol/L Chloride 106 (98-107) mmol/L Carbon Dioxide 25 (22-30) mmol/L Anion Gap 7 (4-12) mmol/L BUN 11 (7-17) mg/dL Creatinine 0.62 L (0.7-1.0) mg/dL Estim Creat Clear Calc 121 ml/min Estimated GFR > 60 (59 - ) Glucose 88 (65-110) mg/dL Calcium 9.4 (8.4-10.2) mg/dL Total Bilirubin 0.2 (0.2-1.3) mg/dL AST 25 (14-36) U/L ALT 18 (6-35) U/L Alkaline Phosphatase 43 (38-126) U/L Total Protein 7.8 (6.3-8.2) g/dL Albumin 4.4 (3.5-5.1) g/dL Lipase 372 H (23-300) U/L Urine Color Yellow (Yellow) Urine Appearance Clear (Clear) Urine pH 8.0 (5.0-9.0) Ur Specific [place] 1.012 (1.001-1.035) Urine Protein Negative (Negative) mg/dL Urine Glucose (UA) Negative (Negative) mg/dL Urine Ketones Negative (Negative) mg/dL Ur Blood (Man) Negative (Negative) Urine Nitrate Negative (Negative) Urine Bilirubin Negative (Negative) Urine Urobilinogen 0.2 (<2.0) mg/dL Leukocyte Esterase Rfl Trace H (Negative) CATRACHITO/UL Urine RBC 0-2 (0-2) /hpf Urine WBC 0-5 (0-3) /hpf Ur Squamous Epith Cells None seen (Few) /hpf Urine Bacteria Rare /hpf Urine Casts 0-2 POC Urine HCG, Qual Negative (Negative) Imaging Data Radiologist's impression: ITS Impressions Abdomen/Pelvis CT 10/03/24 18:40 IMPRESSION: 1. No evidence of appendicitis, diverticulitis or intestinal obstruction. 2. Fluid in the large bowel which may indicate diarrhea. Enteritis cannot be excluded. Clinical correlation advised. Discharge Plan Discharge Clinical Impression: Constipation Qualifiers: Constipation type: unspecified constipation type Qualified Code(s): K59.00 - Constipation, unspecified Pancreatitis Qualifiers: Chronicity: chronic Pancreatitis type: unspecified pancreatitis type Qualified Code(s): K86.1 - Other chronic pancreatitis Patient Disposition: Home Condition: Stable Instructions: Antibiotic Form, Constipation (ED) Additional Instructions: Take ezrm-wsy-qvzfmfq Colace (docusate sodium) 100 mg 1-2 X a day; take MiraLax (polyethylene glycol) 1 capful 1-2 X a day; advise szdy-uso-wdwobhu fiber supplements or increasing fiber intake; witch Olivia for hemorrhoids; continue increased water intake. Follow up with primary care doc in a week. Return to the ED if symptoms persist, severe abdominal pain, fevers, chills. Patient Language: Indonesian Prescriptions: No Action hydrocodone-acetaminophen 5-325 mg tablet 1 tablet PO Q6H PRN (Reason: pain) Qty: 10 0RF acetaminophen 500 mg tablet 1,000 mg PO TID PRN (Reason: jerry) 7 Days Qty: 42 0RF ibuprofen 800 mg tablet 800 mg PO TID PRN (Reason: pain) 7 Days Qty: 21 0RF Follow-up/Referrals: PHYSICIAN NOT ON STAFF,NONSTAFF [Primary Care Provider] - 1 Week
[2024-10-03 18:03] LABS: Alanine Aminotransferase 18 U/L (6-35); Albumin Level 4.4 g/dL (3.5-5.1); Alkaline Phosphatase 43 U/L (38-126); Anion Gap 7 mmol/L (4-12); Aspartate Amino Transferase 25 U/L (14-36); Bilirubin,Total 0.2 mg/dL (0.2-1.3); Blood Urea Nitrogen 11 mg/dL (7-17); Calcium 9.4 mg/dL (8.4-10.2); Carbon Dioxide 25 mmol/L (22-30); Chloride 106 mmol/L (98-107); Estimated CRCL calculation 121 ml/min; Estimated Glomerular Filt Rate > 60; Glucose 88 mg/dL (65-110); Lipase 372 U/L (23-300); Potassium 4.0 mmol/L (3.4-5.0); Sodium 138 mmol/L (137-145); Total Protein 7.8 g/dL (6.3-8.2)
[2024-10-03 18:26] LABS: Add Urine Microscopic? YES; Appearance Urine Clear (Clear); Glucose Urine UA Negative (Negative); Leukocyte Esterase Ur Trace LEU/UL (Negative); Nitrate Urine Negative (Negative); Non Pathogenic Casts 0-2; Specific Grav Ur 1.012 (1.001-1.035)
[2024-10-03 18:53] VITALS: BP 116/78; PULSE 74; RESP 16; O2SAT 100
[2024-10-03 19:14] VITALS: BP 123/80; PULSE 66; RESP 13; O2SAT 100
== END 2024-10-03 20:01 | disposition home or self-care (01) ==
PROVIDERS: Emergency Medicine; Emergency Provider Registered Nurse Emergency
DX: K59.00 Constipation, unspecified (principal); K86.1 Other chronic pancreatitis; K21.9 Gastro-esophageal reflux disease without esophagitis
CPT/HCPCS: 36415; 74176; 80053; 81001; 81025; 83690; 85025; 99284